=== PATIENT | female | born 1950 | race Caucasian/White ===

== ENCOUNTER 2021-02-13 15:37 | Inpatient (IN) | payer MEDICARE, OTHER ==
[~2021-02-13] VITALS: Ht 162.6 cm; Wt 59.0 kg
--- NOTE | 2021-02-13 15:45 | NUR ---
DR. MANE AT BS FOR EVAL.
--- NOTE | 2021-02-13 15:51 | NUR ---
DENISSE Ambulife unit 716 from [facility] "Dementia/wanders. PT AAOX2, VSS. RR EVEN & UNLABORED. DENIES CP, SOB, DIZZINESS, N/V AT THIS TIME. PT CALM & COOPERATIVE AT THIS TIME. SITTER AT BS & WILL CONT TO MONITOR.
--- NOTE | 2021-02-13 16:08 | NUR ---
STARTED IV LINE, BLOOD SPECIMEN COLLECTED AND SENT TO THE LAB. THE LINE IS SALINE LOCKED.
[2021-02-13 16:11] LABS: BILIRUBIN,URINE Negative (NEGATIVE); COLOR,URINE YELLOW (YELLOW); LEUKOCYTE ESTERASE ,URINE Negative (NEGATIVE); NITRITE, URINE Negative (NEGATIVE); PROTEIN,URINE Negative (NEGATIVE); UGLUCOSE Negative (NEGATIVE); UROBILINOGEN,URINE 0.2 EU/dL (0.2)
[2021-02-13 16:12] LABS: BASOPHILS # (AUTO) 0.1 K/uL (0.0-0.2); BASOPHILS % (AUTO) 0.9 % (0.0-2.0); EOSINOPHILS % (AUTO) 2.6 % (0.0-6.0); HEMATOCRIT 40 % (33-45); LYMPHOCYTES % (AUTO) 36.1 % (20.0-44.0); MEAN CORPUSCULAR HGB CONC 32 g/dl (31.0-36.0); MEAN CORPUSCULAR VOLUME 89 fL (82-100); MONOCYTES # (AUTO) 0.9 K/uL (0.1-1.30); MONOCYTES % (AUTO) 10.3 % (2.0-12.0); NEUTROPHILS # (AUTO) 4.2 K/uL (1.8-8.9); NEUTROPHILS % (AUTO) 50.1 % (43.0-81.0); PLATELET COUNT (AUTO) 268 K/uL (150-450); WHITE BLOOD COUNT (AUTO) 8.4 K/uL (4.3-11.0)
[2021-02-13] MEDS ORDERED: DORZ10DR13 EACHEYE (16:13)
[2021-02-13] MEDS ORDERED: TRAZ-182 PO (16:13)
[2021-02-13] MEDS ORDERED: MULT-447 PO (16:13)
[2021-02-13] MEDS ORDERED: ATOR40TA PO (16:13)
[2021-02-13] MEDS ORDERED: AMLO5TAB4 PO (16:13)
[2021-02-13] MEDS ORDERED: LAMO25TA10 PO (16:13)
[2021-02-13] MEDS ORDERED: DOCU-141 PO (16:13)
[2021-02-13] MEDS ORDERED: QUET50TA PO (16:13)
[2021-02-13] MEDS ORDERED: LORA2VIA11 IM (16:13)
[2021-02-13] MEDS ORDERED: ASCO500C17 PO (16:13)
--- NOTE | 2021-02-13 16:13 | NUR ---
URINE COLLECTED AND SENT TO THE LAB
--- NOTE | 2021-02-13 16:15 | NUR ---
MOVE SHEET SUBMITTED AND CALLED FOR BED.
[2021-02-13 16:19] LABS: CALCIUM, SERUM 8.8 mg/dL (8.5-10.1); CARBON DIOXIDE 28 mmol/L (21-32); CHLORIDE 105 mmol/L (98-107); CREATININE 1.2 mg/dL (0.6-1.3); GLUCOSE 99 mg/dL (74-106); POTASSIUM 3.2 mmol/L (3.5-5.1); SODIUM SERUM 142 mmol/L (136-145); UREA NITROGEN, BLOOD 16 mg/dL (7-18)
[2021-02-13 16:24] LABS: ACETAMINOPHEN 0 ug/ml (10-30); ALCOHOL, BLOOD < 3 mg/dL (0-0)
--- NOTE | 2021-02-13 16:40 | NUR ---
COVID SWAB DONE & SENT TO LAB.
[2021-02-13 17:27] LABS: THYROID STIMULATING HORMONE 0.865 uIU/mL (0.358-3.74)
[2021-02-13] MEDS ORDERED: POTASSIUM CHLORIDE 20 MEQ TAB.PRT.SR PO ONE ×2 (17:30→17:34)
--- NOTE | 2021-02-13 17:42 | NUR ---
CLAIRE CALLED, ON HER WAY.
[2021-02-13] MEDS ORDERED: LORAZEPAM INJ 2 MG/ML VIAL ONE (17:54)
[2021-02-13] MEDS ORDERED: LORAZEPAM INJ 2 MG/ML VIAL IV ONE (18:00)
--- NOTE | 2021-02-13 19:14 | NUR ---
REPORT GIVEN TO NURSE PLUNKETT FOR ROGELIO
--- NOTE | 2021-02-13 19:38 | NUR ---
[facility] CALLED CONTINUOUS MINING MACHINE LODE MINER PAGED.
--- NOTE | 2021-02-13 20:05 | NUR ---
REPORT GIVEN TO THUY DENIS FOR ROGELIO
--- NOTE | 2021-02-13 20:21 | NUR ---
PATIENT TRANSFERRED, VSS, PT IN NO ACUTE DISTRESS
[2021-02-13] MEDS ORDERED: MAG HYDROX/AL HYDROX/SIMETH 30 ML UDC PO PRN (21:00)
[2021-02-13] MEDS ORDERED: MAGNESIUM HYDROXIDE 30 ML UDC PO PRN (21:00)
[2021-02-13 21:09] VITALS: BP 146/96
[2021-02-13] MEDS ORDERED: BLOOD SUGAR DIAGNOSTIC 1 EACH STRIP IN ONE (21:30)
[2021-02-13] MEDS: QUETIAPINE FUMARATE 25 MG TABLET PO PRN (21:42)
--- NOTE | 2021-02-13 21:43 | NUR ---
ANXIETY PT. NOTED VERY ANXIOUS , PARANOID YELLING, RESTLESS, PACING IN HALLWAY,WANDRING IN THE UNIT, NON DIRECTABLE PRN SEROQUEL 12.5 MG PO GIVEN FOR ANXIETY ,WILL CONTINUE TO MONITOR.
[2021-02-13] MEDS: TIMOLOL 0.5% SOLN OPHTH 5 ML BOTTLE EACHEYE SCH (21:49)
[2021-02-13] MEDS: ATORVASTATIN 40 MG TABLET PO SCH (21:49)
[2021-02-13 23:37] VITALS: BP 130/78
--- NOTE | 2021-02-14 01:07 | NUR ---
ADMISSION NOTES: ADMITTED THIS 70Y/O FEMALE PATIENT [facility] , ADMITTED TO GPS ON 5150 HOLD, PER HOLD GD , DTO AND INCREASED AGITATION, PHYSICALLY AGGRESSIVE TOWARDS STAFF , STRIKING OUT ,SCRATCHING AND KICKING STAFF , ATTEMPTED TO ELOPED FROM THE FACILITY AGGRESSIVE BEHAVIOR, UPON FACE TO FACE ASSESSMENT PATIENT IS A&O X 1 , DEPRESSED , ANXIOUS ,EASILY AGITATED , PARNOID DISHELVED , AGITATED, DISORGNIZED, ,POOR HYGINE REFUSED TO TAKE SHOWER AT THIS TIME, PT. IS POOR HISTORIAN, POOR INSIGHT ,POOR JUDGEMENT, PT. DENIES SI HI AT THIS TIME , BOTH MD AWARE AND NOTIFIED OF THE ADMISSION, BELONGINGS CONTRABAND WERE DONE , PT. REFUSED TO SIGNS OF ADMISSION PAPER DUE TO MENTAL CONDITION,PT. RIGHTS DISCUSS BY PRIMARY NURSE , PROVIDE THE PT. WITH HANDBOOK, AND MEDICATIONS GUIDE, ENVIRONMENTAL SAFETY CHECK DONE, ENCOURAGED PT. VERBALIZED ANY FEELING CONCERN TO STAFF, ORIENT TO UNIT POLICY, NO ACUTE DISTRESS NOTED,VITAL SIGNS WNL ,DENIES ANY PAIN AT THIS TIME,WILL CONTINUE TO MONITOR FOR Q15 SAFETY AND BEHAVIOR.
[2021-02-14] MEDS ORDERED: Z GUARD REMEDY 2 OZ OINT TP PRN (07:30)
[2021-02-14 08:00] VITALS: BP 126/78
[2021-02-14] MEDS: MULTIVIT W/MINERALS 1 TAB TABLET PO SCH (09:59)
[2021-02-14] MEDS: DOCUSATE SODIUM 100 MG CAPSULE PO SCH (09:59)
[2021-02-14] MEDS: AMLODIPINE BESYLATE 5 MG TABLET PO SCH (10:00)
[2021-02-14] MEDS: ASCORBIC ACID 500 MG TABLET PO SCH (10:00)
[2021-02-14] MEDS: Z GUARD REMEDY 2 OZ OINT TP SCH (10:02)
[2021-02-14] MEDS: QUETIAPINE FUMARATE 25 MG TABLET PO PRN (11:51)
--- NOTE | 2021-02-14 11:56 | NUR ---
CALLED DR. PANIAGUA REGARDING PT'S AGITATION.STATES HE WILL BE HERE IN 30 MINUTES,GIVEN SEROQUEL 12.5MG PO.
[2021-02-14] MEDS ORDERED: QUETIAPINE FUMARATE 25 MG TABLET PO SCH ×2 (14:30)
--- NOTE | 2021-02-14 14:33 | NUR ---
DR. PANIAGUA CALLED REGARDING SEVERE AGITATION,INSTRUCTED TO ATTEMPT 12.5 MG SEROQUEL.MED GIVEN BY RN,WILL MONITOR PT.
--- NOTE | 2021-02-14 15:51 | NUR ---
given zyprexa im per dr. germain's order.pt. extremely agitated and pounding on wall,additionally appears to be hallucinating as well.
--- NOTE | 2021-02-14 15:55 | NUR ---
pacing back and forth on unit.
[2021-02-14] MEDS ORDERED: OLANZAPINE 10 MG VIAL IM ONE (16:00)
--- NOTE | 2021-02-14 16:00 | NUR ---
followed working senior mechanical development engineer out unit door and rn quickly detained pt.back in to unit.
[2021-02-14 20:00] VITALS: BP 124/80
[2021-02-14 20:22] VITALS: BP 124/80
[2021-02-14] MEDS: QUETIAPINE FUMARATE 25 MG TABLET PO SCH (20:46)
[2021-02-14] MEDS: DIVALPROEX SODIUM 125 MG TABLET.DR PO SCH (20:46)
[2021-02-14] MEDS: TIMOLOL 0.5% SOLN OPHTH 5 ML BOTTLE EACHEYE SCH (21:03)
[2021-02-14] MEDS: ATORVASTATIN 40 MG TABLET PO SCH (21:19)
[2021-02-14] MEDS: ACETAMINOPHEN 325 MG TABLET PO PRN (22:46)
--- NOTE | 2021-02-14 22:47 | NUR ---
RN NOTE: PAIN PATIENT C/O LOWER BACK PAIN, UNABLE TO SCALE DUE TO CONFUSION. PATIENT REQUESTED FOR TYLENOL. PRN TYLENOL 650 MG PO ADMINISTERED. WILL CONTINUE TO MONITOR.
[2021-02-14] MEDS: ZOLPIDEM TARTRATE 5 MG TABLET PO PRN (23:03)
--- NOTE | 2021-02-14 23:04 | NUR ---
RN NOTE: INSOMNIA PATIENT IS UNABLE TO SLEEP, RESTLESS, EASILY AGITATED, PATIENT STATED," I CAN'T SLEEP, CAN YOU GIVE ME SOMETHING FOR SLEEP." PRN AMBIEN 5 MG 1 TAB PO ADMINISTERED. WILL CONTINUE TO MONITOR.
[2021-02-15 08:00] VITALS: BP 127/67
[2021-02-15] MEDS: QUETIAPINE FUMARATE 25 MG TABLET PO PRN ×2 (08:03→12:15)
[2021-02-15] MEDS: ASCORBIC ACID 500 MG TABLET PO SCH (08:04)
[2021-02-15] MEDS: MULTIVIT W/MINERALS 1 TAB TABLET PO SCH (08:04)
[2021-02-15] MEDS: DIVALPROEX SODIUM 125 MG TABLET.DR PO SCH ×3 (08:04→21:01)
[2021-02-15] MEDS: AMLODIPINE BESYLATE 5 MG TABLET PO SCH (08:04)
[2021-02-15] MEDS: Z GUARD REMEDY 2 OZ OINT TP SCH (08:06)
[2021-02-15] MEDS: DOCUSATE SODIUM 100 MG CAPSULE PO SCH (08:06)
--- NOTE | 2021-02-15 08:30 | NUR ---
RN-CO: SEROQUEL 12.5 GIVEN FOR RESTLESSNESS.
--- NOTE | 2021-02-15 12:21 | NUR ---
RN-CO: SEROQUEL 12.5 MG PO GIVEN FOR AGITATION.
[2021-02-15] MEDS: QUETIAPINE FUMARATE 25 MG TABLET PO SCH ×2 (13:00→21:01)
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
[2021-02-15] MEDS ORDERED: OLANZAPINE 10 MG VIAL IM STA ×2 (13:22→15:43)
--- NOTE | 2021-02-15 15:40 | NUR ---
RN-CO: PREVIOUS ZYPREXA 3 MG IM THAT WAS GIVEN IS INEFFECTIVE, SYMTOMS OF AGGRESSION IS WORSEN,, NO WSHE IS SCREAMING, THREATENING AND AGITATING ANOTHER PATIENTS. DR PANIAGUA ORDERED ZYPREXA 3 MG IM STAT.
[2021-02-15 16:00] VITALS: BP 134/70
[2021-02-15 19:48] VITALS: BP 132/81
--- NOTE | 2021-02-15 19:48 | NUR ---
Patient in room at this time quiet but yelling when staff enters. Will monitor for behaviors overnight and give PRN ordered meds as needed.
[2021-02-15] MEDS: ATORVASTATIN 40 MG TABLET PO SCH (21:01)
[2021-02-15] MEDS: TIMOLOL 0.5% SOLN OPHTH 5 ML BOTTLE EACHEYE SCH (21:01)
[2021-02-15] MEDS: ZOLPIDEM TARTRATE 5 MG TABLET PO PRN (22:18)
[2021-02-16] MEDS: QUETIAPINE FUMARATE 25 MG TABLET PO PRN (04:40)
--- NOTE | 2021-02-16 06:21 | NUR ---
Patient refusing AM labs x3.
[2021-02-16 08:00] VITALS: BP 137/85
[2021-02-16] MEDS: Z GUARD REMEDY 2 OZ OINT TP SCH (08:42)
[2021-02-16] MEDS: ASCORBIC ACID 500 MG TABLET PO SCH (08:46)
[2021-02-16] MEDS: DOCUSATE SODIUM 100 MG CAPSULE PO SCH (08:46)
[2021-02-16] MEDS: MULTIVIT W/MINERALS 1 TAB TABLET PO SCH (08:48)
[2021-02-16] MEDS: DIVALPROEX SODIUM 125 MG TABLET.DR PO SCH ×3 (08:48→20:31)
[2021-02-16] MEDS: QUETIAPINE FUMARATE 25 MG TABLET PO SCH ×3 (08:48→20:42)
[2021-02-16] MEDS: AMLODIPINE BESYLATE 5 MG TABLET PO SCH (08:48)
--- NOTE | 2021-02-16 09:46 | NUR ---
KAYLA Initial Discharge Plan: Pt resides at [facility] [address] [address]; . Pt does not have any support contact at this time. KAYLA will work with the MD and family to help coordinate appropriate discharge plan.
--- NOTE | 2021-02-16 10:28 | NUR ---
K DUR 40 MEQ PO ONCE ORDER PLACED. PER BRINA RABAGO DNP REQUEST. PT'S K 3.2.
[2021-02-16] MEDS ORDERED: POTASSIUM CHLORIDE 20 MEQ TAB.PRT.SR PO ONE (10:30)
--- NOTE | 2021-02-16 10:35 | NUR ---
K DUR ORDER CANCELLED. PER GEM PARKS
--- NOTE | 2021-02-16 10:48 | NUR ---
SNF Contact: SW spoke with Oliver Glass ([phone]) from [facility] and they stated they will consult with and KAYLA to see if pt is acceptable at the facility.
--- NOTE | 2021-02-16 13:48 | NUR ---
KAYLA SNF Referral: KAYLA sent clinicals to [facility] to Leticia kaur ([phone]) for placement option. KAYLA sent H & P notes, progress notes, and medication list.
[2021-02-16 16:00] VITALS: BP 138/80
[2021-02-16 19:59] VITALS: BP 142/73
[2021-02-16 20:14] VITALS: BP 142/73
[2021-02-16 20:43] LABS: BASOPHILS # (AUTO) 0.2 K/uL (0.0-0.2); BASOPHILS % (AUTO) 1.2 % (0.0-2.0); EOSINOPHILS % (AUTO) 1.9 % (0.0-6.0); HEMATOCRIT 40 % (33-45); HEMOGLOBIN 13.2 g/dL (11.5-14.8); LYMPHOCYTES # (AUTO) 3.5 K/uL (0.8-4.8); LYMPHOCYTES % (AUTO) 25.3 % (20.0-44.0); MEAN CORPUSCULAR HGB CONC 33 g/dl (31.0-36.0); MEAN CORPUSCULAR VOLUME 89 fL (82-100); MONOCYTES # (AUTO) 1.3 K/uL (0.1-1.30); MONOCYTES % (AUTO) 9.4 % (2.0-12.0); NEUTROPHILS # (AUTO) 8.5 K/uL (1.8-8.9); NEUTROPHILS % (AUTO) 62.2 % (43.0-81.0); PLATELET COUNT (AUTO) 308 K/uL (150-450); RED BLOOD CELL COUNT(AUTO) 4.52 MIL/uL (4.0-5.2); WHITE BLOOD COUNT (AUTO) 13.6 K/uL (4.3-11.0)
[2021-02-16 20:58] LABS: CALCIUM, SERUM 9.6 mg/dL (8.5-10.1); CREATININE 0.9 mg/dL (0.6-1.3); MAGNESIUM 2.4 mg/dL (1.8-2.4); PHOSPHORUS 4.8 mg/dL (2.5-4.9); POTASSIUM 4.1 mmol/L (3.5-5.1)
[2021-02-16] MEDS: TIMOLOL 0.5% SOLN OPHTH 5 ML BOTTLE EACHEYE SCH (21:05)
[2021-02-16] MEDS: ATORVASTATIN 40 MG TABLET PO SCH (21:05)
--- NOTE | 2021-02-17 05:38 | NUR ---
RN NOTES PATIENT SLEPT WELL AT NIGHT, NOTED TO BE EASILY AGITATED BUT REDIRECTABLE. NO PRN'S NEEDED AT NIGHT.
[2021-02-17 08:00] VITALS: BP 140/89
[2021-02-17] MEDS: Z GUARD REMEDY 2 OZ OINT TP SCH (09:02)
[2021-02-17] MEDS: DOCUSATE SODIUM 100 MG CAPSULE PO SCH (09:05)
[2021-02-17] MEDS: MULTIVIT W/MINERALS 1 TAB TABLET PO SCH (09:05)
[2021-02-17] MEDS: ASCORBIC ACID 500 MG TABLET PO SCH (09:06)
[2021-02-17] MEDS: QUETIAPINE FUMARATE 25 MG TABLET PO SCH ×3 (09:06→20:35)
[2021-02-17] MEDS: AMLODIPINE BESYLATE 5 MG TABLET PO SCH (09:07)
[2021-02-17] MEDS: DIVALPROEX SODIUM 125 MG TABLET.DR PO SCH ×3 (09:28→20:33)
--- NOTE | 2021-02-17 10:29 | NUR ---
SW SNF Contact: KAYLA spoke with Leticia from [facility] who stated that pt is accepted.
[2021-02-17 16:00] VITALS: BP 130/72
[2021-02-17 20:00] VITALS: BP 134/72
[2021-02-17] MEDS: ATORVASTATIN 40 MG TABLET PO SCH (21:28)
[2021-02-17] MEDS: TIMOLOL 0.5% SOLN OPHTH 5 ML BOTTLE EACHEYE SCH (21:29)
[2021-02-17] MEDS: ZOLPIDEM TARTRATE 5 MG TABLET PO PRN (21:53)
[2021-02-18 08:00] VITALS: BP 127/74
[2021-02-18] MEDS: ACETAMINOPHEN 325 MG TABLET PO PRN (08:07)
--- NOTE | 2021-02-18 08:32 | NUR ---
GIVEN TYLENOL 650 MG PO FOR BACK ACHE.
[2021-02-18] MEDS: ASCORBIC ACID 500 MG TABLET PO SCH (08:53)
[2021-02-18] MEDS: MULTIVIT W/MINERALS 1 TAB TABLET PO SCH (08:53)
[2021-02-18] MEDS: QUETIAPINE FUMARATE 25 MG TABLET PO SCH ×3 (08:53→20:58)
[2021-02-18] MEDS: DOCUSATE SODIUM 100 MG CAPSULE PO SCH (08:54)
[2021-02-18] MEDS: DIVALPROEX SODIUM 125 MG TABLET.DR PO SCH ×3 (08:54→20:58)
[2021-02-18] MEDS: AMLODIPINE BESYLATE 5 MG TABLET PO SCH (08:54)
[2021-02-18] MEDS: Z GUARD REMEDY 2 OZ OINT TP SCH (09:00)
[2021-02-18] MEDS: QUETIAPINE FUMARATE 25 MG TABLET PO PRN (13:39)
--- NOTE | 2021-02-18 13:39 | NUR ---
GIVEN PRN SEROQUEL 12.5 MG FOR RESTLESSNESS.ATTEMPTING TO LEAVE UNIT.
[2021-02-18 16:00] VITALS: BP 125/78
[2021-02-18 20:00] VITALS: BP 114/64
[2021-02-18] MEDS: TIMOLOL 0.5% SOLN OPHTH 5 ML BOTTLE EACHEYE SCH (20:58)
[2021-02-18] MEDS: ATORVASTATIN 40 MG TABLET PO SCH (20:58)
[2021-02-19] MEDS: QUETIAPINE FUMARATE 25 MG TABLET PO PRN ×2 (04:14→16:59)
[2021-02-19 08:00] VITALS: BP 122/70
[2021-02-19] MEDS: ASCORBIC ACID 500 MG TABLET PO SCH (08:18)
[2021-02-19] MEDS: QUETIAPINE FUMARATE 25 MG TABLET PO SCH ×3 (08:18→20:50)
[2021-02-19] MEDS: MULTIVIT W/MINERALS 1 TAB TABLET PO SCH (08:18)
[2021-02-19] MEDS: DIVALPROEX SODIUM 125 MG TABLET.DR PO SCH ×3 (08:18→20:50)
[2021-02-19] MEDS: AMLODIPINE BESYLATE 5 MG TABLET PO SCH (08:19)
[2021-02-19] MEDS: DOCUSATE SODIUM 100 MG CAPSULE PO SCH (08:19)
[2021-02-19] MEDS: Z GUARD REMEDY 2 OZ OINT TP SCH (08:22)
--- NOTE | 2021-02-19 12:00 | NUR ---
RN NOTE PT AGITATED AND HIDING PHONE. PT THREW PHONE IN HALLWAY WHEN ATTEMPTING TO GET IT BACK FROM HER. MADE DR. PANIAGUA AWARE WITH NEW ORDERS QUIETAPINE 25MG. ORDERS READ BACK AND CARRIED OUT.
[2021-02-19 16:00] VITALS: BP 110/53
[2021-02-19] MEDS: ACETAMINOPHEN 325 MG TABLET PO PRN (16:59)
[2021-02-19 20:00] VITALS: BP 111/64
[2021-02-19] MEDS: ATORVASTATIN 40 MG TABLET PO SCH (20:50)
[2021-02-19] MEDS: TIMOLOL 0.5% SOLN OPHTH 5 ML BOTTLE EACHEYE SCH (20:51)
[2021-02-19] MEDS: ZOLPIDEM TARTRATE 5 MG TABLET PO PRN (20:51)
[2021-02-20 07:36] LABS: ALANINE AMINOTRANSFERASE 44 U/L (12-78); ASPARTATE AMINOTRANSFERASE 21 U/L (15-37)
[2021-02-20 08:00] VITALS: BP 142/90
[2021-02-20] MEDS: DOCUSATE SODIUM 100 MG CAPSULE PO SCH (08:09)
[2021-02-20] MEDS: DIVALPROEX SODIUM 125 MG TABLET.DR PO SCH ×3 (08:09→21:08)
[2021-02-20] MEDS: ASCORBIC ACID 500 MG TABLET PO SCH (08:09)
[2021-02-20] MEDS: QUETIAPINE FUMARATE 25 MG TABLET PO SCH ×3 (08:09→21:08)
[2021-02-20] MEDS: MULTIVIT W/MINERALS 1 TAB TABLET PO SCH (08:09)
[2021-02-20] MEDS: Z GUARD REMEDY 2 OZ OINT TP SCH (08:10)
[2021-02-20] MEDS: AMLODIPINE BESYLATE 5 MG TABLET PO SCH (08:10)
--- NOTE | 2021-02-20 12:19 | NUR ---
RN NOTES PATIENT SEEN PACING BACK AND FORTH IN THE HALLWAY LOOKING FOR WILLAM. EXPLAINED TO PATIENT THAT STAFF IS CURRENTLY ON BREAK BUT STILL CONTINUES TO LOOK FOR HIM. INSISTS ON GOING OUT OF THE UNIT; NEEDS REDIRECTION AND REORIENTATION. EXPLAINED PLAN OF CARE TO PATIENT BUT DOES NOT LISTEN.
[2021-02-20 12:29] LABS: VALPROIC ACID 73 ug/mL (50-100)
--- NOTE | 2021-02-20 13:50 | NUR ---
Court Hearing: Patient's court hearing for 2670 was today and it was upheld for GD.
[2021-02-20 16:00] VITALS: BP 138/92
[2021-02-20] MEDS: ACETAMINOPHEN 325 MG TABLET PO PRN (19:21)
--- NOTE | 2021-02-20 19:21 | NUR ---
GPS-RN NOTES: LOWER BACK PAIN PATIENT C/O LOWER BACK PAIN ON A PAIN SCALE OF 3/0. PRN ACETAMINOPHEN 650MG PO GIVEN ORDERED. WILL CONTINUE TO REASSESS.
[2021-02-20 20:32] VITALS: BP 150/70
[2021-02-20] MEDS: TIMOLOL 0.5% SOLN OPHTH 5 ML BOTTLE EACHEYE SCH (21:07)
[2021-02-20] MEDS: ATORVASTATIN 40 MG TABLET PO SCH (21:08)
[2021-02-20] MEDS: ZOLPIDEM TARTRATE 5 MG TABLET PO PRN (22:06)
--- NOTE | 2021-02-20 22:07 | NUR ---
GPS-RN NOTES: INSOMNIA PATIENT C/O INABILITY TO SLEEP. PRN AMBIEN 5MG PO GIVEN ORDERED. WILL CONTINUE TO MONITOR.
[2021-02-21] MEDS: ACETAMINOPHEN 325 MG TABLET PO PRN (04:06)
[2021-02-21 08:00] VITALS: BP 125/76
[2021-02-21] MEDS: DOCUSATE SODIUM 100 MG CAPSULE PO SCH (08:55)
[2021-02-21] MEDS: DIVALPROEX SODIUM 125 MG TABLET.DR PO SCH ×3 (08:57→21:47)
[2021-02-21] MEDS: AMLODIPINE BESYLATE 5 MG TABLET PO SCH (08:57)
[2021-02-21] MEDS: Z GUARD REMEDY 2 OZ OINT TP SCH (08:58)
[2021-02-21] MEDS: QUETIAPINE FUMARATE 25 MG TABLET PO SCH ×3 (08:58→21:47)
[2021-02-21] MEDS: MULTIVIT W/MINERALS 1 TAB TABLET PO SCH (08:58)
[2021-02-21] MEDS: ASCORBIC ACID 500 MG TABLET PO SCH (08:58)
--- NOTE | 2021-02-21 09:00 | NUR ---
RN NOTE- CONFUSED REFUSING MEDS, PARANOID, ATTEMPTING DOORS AND AWOL RISK, REDIRECTED REORIENTED TO PLACE, OPPOSITIONAL
[2021-02-21] MEDS ORDERED: OLANZAPINE 10 MG VIAL IM STA (12:24)
--- NOTE | 2021-02-21 12:25 | NUR ---
RN NOTE- PT REFUSING ALL MEDS TODAY, LABILE, PACING AND TRYING DOORS. REDIRECTED NUMEROUS TIMES. PT WAS BEING OPPOSITIONAL BUT COULD REDIRECT. NOW BECOMING MORE AGGRESSIVE, PROFANE AND ANGRY. DR PANIAGUA ORDERED ZYPREXA 3 MG IM STAT
[2021-02-21 16:00] VITALS: BP 119/76
--- NOTE | 2021-02-21 20:00 | NUR ---
GPS RN NOTES RECEIVED OUT OF HER ROOM,CONVERSING WITH OTHER PATIENT SITTING ON CHAIR BY THE BACK STATION,CALM AND COOPERATIVE AT THE MOMENT,NEEDS FREQUENT REDIRECTION.WILL CONTINUE TO MONITOR BEHAVIOR.
[2021-02-21 20:23] VITALS: BP 139/91
[2021-02-21] MEDS: ATORVASTATIN 40 MG TABLET PO SCH (21:48)
[2021-02-21] MEDS: TIMOLOL 0.5% SOLN OPHTH 5 ML BOTTLE EACHEYE SCH (21:49)
--- NOTE | 2021-02-22 01:52 | NUR ---
GPS RN NOTES SOUND ASLEEP,WITH SEROQUEL 75MG ORDERED
[2021-02-22 08:00] VITALS: BP 115/72
[2021-02-22] MEDS: ACETAMINOPHEN 325 MG TABLET PO PRN ×3 (08:02→21:39)
[2021-02-22] MEDS: DOCUSATE SODIUM 100 MG CAPSULE PO SCH (08:02)
[2021-02-22] MEDS: AMLODIPINE BESYLATE 5 MG TABLET PO SCH (08:04)
[2021-02-22] MEDS: DIVALPROEX SODIUM 125 MG TABLET.DR PO SCH ×3 (08:04→21:32)
[2021-02-22] MEDS: QUETIAPINE FUMARATE 25 MG TABLET PO SCH ×3 (08:05→21:31)
[2021-02-22] MEDS: ASCORBIC ACID 500 MG TABLET PO SCH (08:05)
[2021-02-22] MEDS: MULTIVIT W/MINERALS 1 TAB TABLET PO SCH (08:07)
[2021-02-22] MEDS: Z GUARD REMEDY 2 OZ OINT TP SCH (08:08)
[2021-02-22] MEDS: QUETIAPINE FUMARATE 25 MG TABLET PO PRN (09:29)
[2021-02-22 16:00] VITALS: BP 119/60
[2021-02-22 20:09] VITALS: BP 115/70
[2021-02-22] MEDS: ZOLPIDEM TARTRATE 5 MG TABLET PO PRN (21:31)
--- NOTE | 2021-02-22 21:31 | NUR ---
GPS RN NOTE - INSOMNIA PT NOTED WITH DIFFICULTY FALLING ASLEEP. ADMINISTERED AMBIEN ORDERED. WILL REASSESS FOR SLEEP IN 1 HOUR.
[2021-02-22] MEDS: ATORVASTATIN 40 MG TABLET PO SCH (21:32)
--- NOTE | 2021-02-22 21:39 | NUR ---
GPS RN NOTE - PAIN PT C/O LOWER BACK PAIN. ADMINISTERED TYLENOL 650MG ORDERED. WILL REASSESS FOR PAIN IN 30 MINUTES
--- NOTE | 2021-02-22 21:48 | NUR ---
GPS RN NOTES PT WANDERING IN THE HALLWAYS. OFFERED PATIENT SNACKS. PT ACCUSES RN OF STEALING AND TAKING HER BELONGINGS. PT OFTEN GOING INTO THE WRONG ROOM. OFFERED PT REDIRECTION AND REORIENTATION FREQUENTLY. WILL CONTINUE TO MONITOR BEHAVIOR.
[2021-02-22] MEDS: TIMOLOL 0.5% SOLN OPHTH 5 ML BOTTLE EACHEYE SCH (22:16)
--- NOTE | 2021-02-23 07:30 | NUR ---
PT RECEIVED RESTING COMFORTABLE IN BED. NO S/S OR C/O PAIN OR DISTRESS NOTED. SIDE RAILS UP X2, CALL LIGHT LEFT WITHIN REACH. WILL CONTINUE PLAN OF CARE.
[2021-02-23 08:00] VITALS: BP 130/69
[2021-02-23] MEDS: DOCUSATE SODIUM 100 MG CAPSULE PO SCH (09:17)
[2021-02-23] MEDS: QUETIAPINE FUMARATE 25 MG TABLET PO SCH ×3 (09:17→21:20)
[2021-02-23] MEDS: DIVALPROEX SODIUM 125 MG TABLET.DR PO SCH ×3 (09:17→20:03)
[2021-02-23] MEDS: ASCORBIC ACID 500 MG TABLET PO SCH (09:17)
[2021-02-23] MEDS: MULTIVIT W/MINERALS 1 TAB TABLET PO SCH (09:17)
[2021-02-23] MEDS: AMLODIPINE BESYLATE 5 MG TABLET PO SCH (09:18)
[2021-02-23] MEDS: Z GUARD REMEDY 2 OZ OINT TP SCH (09:21)
[2021-02-23 16:00] VITALS: BP 118/72
[2021-02-23] MEDS: QUETIAPINE FUMARATE 25 MG TABLET PO PRN (16:55)
--- NOTE | 2021-02-23 18:41 | NUR ---
CHANGE OF SHIFT REPORT PT RESTING COMFORTABLY IN GERICHAIR. NO S/S OR C/O PAIN OR DISTRESS NOTED. PT KEPT CLEAN, DRY, AND COMFORTABLE. NO SIGNIFICANT CHANGES SINCE PREVIOUS SHIFT. WILL GIVE REPORT TO FAITH DALEY.
[2021-02-23 20:00] VITALS: BP 120/76
[2021-02-23] MEDS: ZOLPIDEM TARTRATE 5 MG TABLET PO PRN (20:04)
[2021-02-23] MEDS: ACETAMINOPHEN 325 MG TABLET PO PRN (20:04)
--- NOTE | 2021-02-23 20:04 | NUR ---
GPS RN NOTES PATIENT C/O OF NO SLEEP. PATIENT WAS GIVEN 5MG OF AMBIEN PRN PO. WILL CONTINUE TO MONITOR THE PATIENT.
--- NOTE | 2021-02-23 20:04 | NUR ---
GPS RN NOTE PATIENT C/O OF SCIATICA PAIN AT THIS TIME. PATIENT WAS GIVEN 650MG TYLENOL PO. WILL CONTINUE TO MONITOR THE PATIENT.
[2021-02-23 20:38] VITALS: BP 120/76
[2021-02-23] MEDS: ATORVASTATIN 40 MG TABLET PO SCH (21:15)
[2021-02-23] MEDS: TIMOLOL 0.5% SOLN OPHTH 5 ML BOTTLE EACHEYE SCH (21:18)
[2021-02-23] MEDS: TRAZODONE 50 MG TABLET PO SCH (22:37)
[2021-02-24 08:00] VITALS: BP 114/77
[2021-02-24] MEDS: MULTIVIT W/MINERALS 1 TAB TABLET PO SCH (08:34)
[2021-02-24] MEDS: ASCORBIC ACID 500 MG TABLET PO SCH (08:34)
[2021-02-24] MEDS: DOCUSATE SODIUM 100 MG CAPSULE PO SCH (08:34)
[2021-02-24] MEDS: QUETIAPINE FUMARATE 25 MG TABLET PO SCH ×3 (08:35→20:09)
[2021-02-24] MEDS: AMLODIPINE BESYLATE 5 MG TABLET PO SCH (08:35)
[2021-02-24] MEDS: DIVALPROEX SODIUM 125 MG TABLET.DR PO SCH ×3 (08:36→20:09)
[2021-02-24] MEDS: Z GUARD REMEDY 2 OZ OINT TP SCH (09:00)
[2021-02-24] MEDS: ACETAMINOPHEN 325 MG TABLET PO PRN ×3 (10:54→20:20)
--- NOTE | 2021-02-24 11:00 | NUR ---
PATIENT C/O OF BACK PAIN 08/16 MEDICATED WITH 650MG TYLENOL PO. WILL CONTINUE TO MONITOR .
--- NOTE | 2021-02-24 11:30 | NUR ---
NO C/O PAIN AT THIS TIME.
[2021-02-24 16:21] VITALS: BP 121/72
[2021-02-24] MEDS: QUETIAPINE FUMARATE 25 MG TABLET PO PRN (16:54)
--- NOTE | 2021-02-24 16:59 | NUR ---
PATIENT C/O OF ANXIETY MEDICATED WITH SEROQUEL 12.5MG PO.WILL CONTINUE TO MONITOR THE PATIENT.
--- NOTE | 2021-02-24 17:05 | NUR ---
PATIENT C/O OF BACK PAIN MEDICATED WITH 650MG TYLENOL PO. WILL CONTINUE TO MONITOR .
[2021-02-24] MEDS: TRAZODONE 50 MG TABLET PO SCH (21:13)
[2021-02-24] MEDS: ATORVASTATIN 40 MG TABLET PO SCH (21:14)
[2021-02-24] MEDS: TIMOLOL 0.5% SOLN OPHTH 5 ML BOTTLE EACHEYE SCH (21:18)
[2021-02-25 08:00] VITALS: BP 122/76
[2021-02-25] MEDS: MULTIVIT W/MINERALS 1 TAB TABLET PO SCH (08:54)
[2021-02-25] MEDS: DIVALPROEX SODIUM 125 MG TABLET.DR PO SCH ×3 (08:54→21:05)
[2021-02-25] MEDS: ASCORBIC ACID 500 MG TABLET PO SCH (08:54)
[2021-02-25] MEDS: QUETIAPINE FUMARATE 25 MG TABLET PO SCH ×3 (08:54→21:05)
[2021-02-25] MEDS: DOCUSATE SODIUM 100 MG CAPSULE PO SCH (08:54)
[2021-02-25] MEDS: AMLODIPINE BESYLATE 5 MG TABLET PO SCH (08:55)
[2021-02-25] MEDS: Z GUARD REMEDY 2 OZ OINT TP SCH (09:56)
[2021-02-25 16:00] VITALS: BP 127/57
[2021-02-25 20:00] VITALS: BP 138/85
[2021-02-25] MEDS: TRAZODONE 50 MG TABLET PO SCH (21:05)
[2021-02-25] MEDS: ATORVASTATIN 40 MG TABLET PO SCH (21:05)
[2021-02-25] MEDS: TIMOLOL 0.5% SOLN OPHTH 5 ML BOTTLE EACHEYE SCH (21:06)
[2021-02-26 08:00] VITALS: BP 131/74
[2021-02-26] MEDS: QUETIAPINE FUMARATE 25 MG TABLET PO SCH ×3 (08:40→20:42)
[2021-02-26] MEDS: MULTIVIT W/MINERALS 1 TAB TABLET PO SCH (08:40)
[2021-02-26] MEDS: DIVALPROEX SODIUM 125 MG TABLET.DR PO SCH ×3 (08:40→20:42)
[2021-02-26] MEDS: AMLODIPINE BESYLATE 5 MG TABLET PO SCH (08:40)
[2021-02-26] MEDS: DOCUSATE SODIUM 100 MG CAPSULE PO SCH (08:40)
[2021-02-26] MEDS: ASCORBIC ACID 500 MG TABLET PO SCH (08:40)
[2021-02-26] MEDS: Z GUARD REMEDY 2 OZ OINT TP SCH (09:22)
[2021-02-26 16:00] VITALS: BP 107/59
[2021-02-26 19:58] VITALS: BP 134/83
[2021-02-26] MEDS: TRAZODONE 50 MG TABLET PO SCH (21:05)
[2021-02-26] MEDS: ATORVASTATIN 40 MG TABLET PO SCH (21:14)
[2021-02-26] MEDS: TIMOLOL 0.5% SOLN OPHTH 5 ML BOTTLE EACHEYE SCH (21:24)
[2021-02-26] MEDS: ZOLPIDEM TARTRATE 5 MG TABLET PO PRN (21:36)
--- NOTE | 2021-02-26 21:41 | NUR ---
PS-RN NOTES: INSOMNIA PATIENT C/O INABILITY TO SLEEP. PRN AMBIEN 5MG PO GIVEN ORDERED. WILL CONTINUE TO MONITOR.
[2021-02-26] MEDS: ACETAMINOPHEN 325 MG TABLET PO PRN (21:56)
--- NOTE | 2021-02-26 21:57 | NUR ---
GPS-RN NOTES: LOWER BACK PAIN PATIENT C/O LOWER BACK PAIN. ON A PAIN SCALE OF 3/10. PRN ACETAMINOPHEN 650MG PO GIVEN ORDERED. WILL CONTINUE TO REASSESS.
[2021-02-27 08:00] VITALS: BP 135/83
[2021-02-27] MEDS: QUETIAPINE FUMARATE 25 MG TABLET PO SCH ×3 (09:06→21:45)
[2021-02-27] MEDS: DIVALPROEX SODIUM 125 MG TABLET.DR PO SCH ×3 (09:06→21:45)
[2021-02-27] MEDS: MULTIVIT W/MINERALS 1 TAB TABLET PO SCH (09:06)
[2021-02-27] MEDS: ASCORBIC ACID 500 MG TABLET PO SCH (09:06)
[2021-02-27] MEDS: DOCUSATE SODIUM 100 MG CAPSULE PO SCH (09:06)
[2021-02-27] MEDS: AMLODIPINE BESYLATE 5 MG TABLET PO SCH (09:07)
[2021-02-27] MEDS: Z GUARD REMEDY 2 OZ OINT TP SCH (09:08)
--- NOTE | 2021-02-27 09:21 | NUR ---
TUESDAY EARLY ENTRY: Patient will be discharged to a locked custodial facility to [facility] [address] [place] [address]; ([phone]). Please arrange ambulance transportation. Mortgage Loan Assistant spoke with Daniela, Second Worker at [facility]; ([phone]), who stated patient will be accepted at facility today. Patient is alert and oriented x2, and is not able to plan for self-care at this time, but is willing to accept care provided for her at the facility. Patient denies any suicidal or homicidal ideations. Patient is aware and agreeable with discharge plans. Patient does not have any support at this time. Patient will continue to follow-up with her (Psychiatrist) Dr. Maddox [address] [place] [address]; ([phone] and (Transformer Assembly Supervisor) Dr. Neff [address] [address]; ([phone]). Patient presents with euthymic mood and congruent affect.
--- NOTE | 2021-02-27 09:50 | NUR ---
SW Note: SW met with patient and discussed patient's discharge and notified that she will be discharged to [facility]. Pt appeared to be agreeing to going here. However, pt appears to be forgetful and will approach this SW multiple times asking why she is at the hospital and when she will be discharged.
[2021-02-27 16:00] VITALS: BP 121/62
[2021-02-27] MEDS: QUETIAPINE FUMARATE 25 MG TABLET PO PRN ×2 (16:37→17:05)
[2021-02-27] MEDS ORDERED: ZIPRASIDONE MESYLATE 20 MG/VIAL VIAL IM STA (18:09)
--- NOTE | 2021-02-27 18:30 | NUR ---
RN NOTE:AT 1820 PATIENT AGITATED ,ASSAULTIVE ,NOT FOLLOWING DIRECTIONS ,OFFERED 1:1 INTERACTION WITH PATIENT ,TRIED TO REDIRECT PT BUT PATIENT AGITATED AND ,YELLING AND THROWING OBJECTS TO STAFF , NOTIFIED WITH NEW ORDER GEODON 5MG IM X1 STAT AND GIVEN AT 1830 ,PATIENT REFUSED VITAL SIGN ,MONITORED PATIENT [id number] X4,NO SOB ,PATIENT TOLERATED INJECTION WELL ,WILL CONTINUE TO MONITOR .
--- NOTE | 2021-02-27 18:52 | NUR ---
patient refused CBC,BMP X1 AND TALKED TO Jasamine he will attempt two more times .
--- NOTE | 2021-02-27 18:53 | NUR ---
AWARE PATIENT REFUSED LABS ,WILL CONTINUE TO ENCOURAGE PATIENT TO COMPLY .
[2021-02-27 19:58] VITALS: BP 146/96
--- NOTE | 2021-02-27 20:02 | NUR ---
GPS RN NOTES: PATIENT REFUSED PM LABS
[2021-02-27] MEDS: ATORVASTATIN 40 MG TABLET PO SCH (21:45)
[2021-02-27] MEDS: TRAZODONE 50 MG TABLET PO SCH (21:45)
[2021-02-27] MEDS: TIMOLOL 0.5% SOLN OPHTH 5 ML BOTTLE EACHEYE SCH (21:47)
[2021-02-27] MEDS: ZOLPIDEM TARTRATE 5 MG TABLET PO PRN (22:18)
--- NOTE | 2021-02-27 22:25 | NUR ---
GPS RN NOTES: Ambien 5mg given PO at 2218. Will continue to monitor.
--- NOTE | 2021-02-28 07:01 | NUR ---
GPS RN CLOSING NOTES: PATIENT IS CURRENTLY LAYING IN BED SLEEPING COMFORTABLY. PATIENT SLEPT 8HRS THIS SHIFT. NO S/S OF DISTRESS. RESPIRATION EVEN AND UNLABORED WITH EQUAL RISE AND FALL OF THE CHEST, ON ROOM AIR. ALL PATIENT CARE NEEDS HAVE BEEN MET ANTICIPATED. BED IN LOWEST POSITION AND LOCKED, SIDE RAILS UP X2 FOR SAFETY. WILL CONTINUE TO MONITOR AND AND ENDORSE TO AM SHIFT.
[2021-02-28 08:00] VITALS: BP 142/77
[2021-02-28] MEDS: QUETIAPINE FUMARATE 25 MG TABLET PO SCH ×3 (08:22→21:02)
[2021-02-28] MEDS: ASCORBIC ACID 500 MG TABLET PO SCH (08:22)
[2021-02-28] MEDS: MULTIVIT W/MINERALS 1 TAB TABLET PO SCH (08:22)
[2021-02-28] MEDS: DIVALPROEX SODIUM 125 MG TABLET.DR PO SCH ×3 (08:22→21:02)
[2021-02-28] MEDS: DOCUSATE SODIUM 100 MG CAPSULE PO SCH (08:22)
[2021-02-28] MEDS: AMLODIPINE BESYLATE 5 MG TABLET PO SCH (08:22)
[2021-02-28] MEDS: GABAPENTIN 100 MG CAPSULE PO SCH ×2 (08:23→12:05)
[2021-02-28] MEDS: Z GUARD REMEDY 2 OZ OINT TP SCH (09:25)
[2021-02-28 16:00] VITALS: BP 115/66
[2021-02-28] MEDS: GABAPENTIN 300 MG CAPSULE PO SCH (16:19)
[2021-02-28 20:00] VITALS: BP 103/47
[2021-02-28] MEDS: TRAZODONE 50 MG TABLET PO SCH (21:08)
[2021-02-28] MEDS: ATORVASTATIN 40 MG TABLET PO SCH (21:08)
[2021-02-28] MEDS: TIMOLOL 0.5% SOLN OPHTH 5 ML BOTTLE EACHEYE SCH (21:09)
[2021-03-01] MEDS: ACETAMINOPHEN 325 MG TABLET PO PRN (05:39)
--- NOTE | 2021-03-01 05:39 | NUR ---
RN NOTES: SLEEP WELL IN THE NIGHT, AWAKE AT 0500,MORNING CARE DONE, SHE WALK AROUND, SHE ASKED FOR HER PAIN MEDICATION, GIVEN; NON PHARMACOLOGIC INTERVENTION RENDERED.
--- NOTE | 2021-03-01 06:07 | NUR ---
RN NOTES: COVID SWAB DONE, SPECIMEN SENT TO LAB.
[2021-03-01 08:00] VITALS: BP 103/71
[2021-03-01 08:25] VITALS: BP 103/71
[2021-03-01] MEDS: AMLODIPINE BESYLATE 5 MG TABLET PO SCH (08:25)
[2021-03-01] MEDS: QUETIAPINE FUMARATE 25 MG TABLET PO SCH ×2 (08:28→12:02)
[2021-03-01] MEDS: DIVALPROEX SODIUM 125 MG TABLET.DR PO SCH ×2 (08:28→12:02)
[2021-03-01] MEDS: MULTIVIT W/MINERALS 1 TAB TABLET PO SCH (08:28)
[2021-03-01] MEDS: GABAPENTIN 300 MG CAPSULE PO SCH ×2 (08:28→12:02)
[2021-03-01] MEDS: Z GUARD REMEDY 2 OZ OINT TP SCH (08:28)
[2021-03-01] MEDS: ASCORBIC ACID 500 MG TABLET PO SCH (08:28)
[2021-03-01] MEDS: DOCUSATE SODIUM 100 MG CAPSULE PO SCH (08:28)
[2021-03-01 12:46] LABS: BASOPHILS # (AUTO) 0.1 K/uL (0.0-0.2); BASOPHILS % (AUTO) 0.9 % (0.0-2.0); EOSINOPHILS % (AUTO) 3.1 % (0.0-6.0); HEMATOCRIT 39 % (33-45); HEMOGLOBIN 12.8 g/dL (11.5-14.8); LYMPHOCYTES # (AUTO) 2.3 K/uL (0.8-4.8); LYMPHOCYTES % (AUTO) 38.1 % (20.0-44.0); MEAN CORPUSCULAR HGB CONC 33 g/dl (31.0-36.0); MEAN CORPUSCULAR VOLUME 90 fL (82-100); MONOCYTES # (AUTO) 0.6 K/uL (0.1-1.30); MONOCYTES % (AUTO) 10.2 % (2.0-12.0); NEUTROPHILS # (AUTO) 2.9 K/uL (1.8-8.9); NEUTROPHILS % (AUTO) 47.7 % (43.0-81.0); PLATELET COUNT (AUTO) 236 K/uL (150-450); WHITE BLOOD COUNT (AUTO) 6.1 K/uL (4.3-11.0)
--- NOTE | 2021-03-01 14:30 | NUR ---
GPS/RN PT DISCHARGED TO [facility]. VIA AMBULANCE. REPORT GIVEN TO CHERELLE FELLED SEAM OPERATOR. EXIT CARE AND PRESCRIPTIONS PROVIDED. PROPERTY RETURNED. NO SI OR HI REPORTED AT THE TIME OF DISCHARGE. PT IS AMBULATORY.VSS. SKIN CLEAR REFUSED PICTURES AND TO SIGN DISCHARGE PAPERWORK.
--- NOTE | 2021-03-02 16:19 | NUR ---
Belt Maker: SW received a call from caser shoe parts Librado from [facility] ([phone]) who wanted information of pt's discharge and placement.
== END 2021-03-01 14:30 | DRG 881 ==
LOC: ER 15:39 → GPS 19:29
PROVIDERS: ADMIT Psychiatry & Neurology Psychiatry; ATTEND Family Medicine
DX: F32.9 Major depressive disorder, single episode, unspecified (principal); F02.81 Dementia in other diseases classified elsewhere, unspecified severity, with behavioral disturbance; G93.40 Encephalopathy, unspecified; F29 Unspecified psychosis not due to a substance or known physiological condition; F41.9 Anxiety disorder, unspecified; E87.6 Hypokalemia; G30.9 Alzheimer's disease, unspecified; Z88.5 Allergy status to narcotic agent; Z88.0 Allergy status to penicillin; Z88.2 Allergy status to sulfonamides; Z73.6 Limitation of activities due to disability; I10 Essential (primary) hypertension; E78.5 Hyperlipidemia, unspecified; Z79.899 Other long term (current) drug therapy; Z87.891 Personal history of nicotine dependence; D72.829 Elevated white blood cell count, unspecified; F41.0 Panic disorder [episodic paroxysmal anxiety]
CPT/HCPCS: 36415; 80048-TC; 80164-TC; 82962-TC; 83735-TC; 84100-TC; 84439-TC; 84443-TC; 84450-TC; 84460-TC; 85025-TC; 87081-TC; 97112-TC; 97116-TC; 97530-TC; C9803; G0480; J2060; J3486; J3490

== ENCOUNTER 2021-10-18 23:29 | Emergency (ER) | payer MEDICARE, OTHER ==
[~2021-10-18] VITALS: Ht 165.1 cm; Wt 51.3 kg
[~2021-10-18 23:29] MED LIST: AMLO5TAB4 PO; ASCO500C17 PO; ATOR40TA PO; DOCU-141 PO; DORZ10DR13 EACHEYE; MULT-447 PO; TRAZ-182 PO
--- NOTE | 2021-10-18 23:35 | NUR ---
ISMAEL FROM [facility] FOR C/O ALOC, AND LOW APPETITE. PT A/OX2. TOLERATING R/A WELL WITH NO SOB. CONNECTED PT TO POX AND MONITOR. SKIN INTACT. VSS. SAFETY MEASURES IN PLACE.
--- NOTE | 2021-10-18 23:50 | NUR ---
POC BS ACCUCHECK 107
--- NOTE | 2021-10-18 23:51 | NUR ---
Sonya SIMON #20G S/L; PATENT AND INTACT. BLOOD COLLECTED AND SENT TO LAB Addendum: 10/19/21 at 0210 by SERA LFA #18G S/L; PATENT AND INTACT. BLOOD COLLECTED AND SENT TO LAB
[2021-10-19] MEDS ORDERED: IV NS 0.9% 1,000 ML BAG IV ONE
[2021-10-19 00:12] LABS: BASOPHILS # (AUTO) 0.1 K/uL (0.0-0.2); BASOPHILS % (AUTO) 0.9 % (0.0-2.0); EOSINOPHILS % (AUTO) 3.9 % (0.0-6.0); HEMATOCRIT 38 % (33-45); HEMOGLOBIN 12.5 g/dL (11.5-14.8); LYMPHOCYTES # (AUTO) 3.3 K/uL (0.8-4.8); LYMPHOCYTES % (AUTO) 27.7 % (20.0-44.0); MEAN CORPUSCULAR HGB CONC 33 g/dl (31.0-36.0); MEAN CORPUSCULAR VOLUME 84 fL (82-100); MONOCYTES # (AUTO) 0.9 K/uL (0.1-1.30); MONOCYTES % (AUTO) 7.4 % (2.0-12.0); NEUTROPHILS # (AUTO) 7.3 K/uL (1.8-8.9); NEUTROPHILS % (AUTO) 60.1 % (43.0-81.0); PLATELET COUNT (AUTO) 259 K/uL (150-450); RED BLOOD CELL COUNT(AUTO) 4.58 MIL/uL (4.0-5.2); WHITE BLOOD COUNT (AUTO) 12.1 K/uL (4.3-11.0)
--- NOTE | 2021-10-19 00:23 | NUR ---
F/C 16FR INSERTED. URINE AND COVID ANTIGEN SWAB COLLECTED AND SENT TO LAB
[2021-10-19 00:25] LABS: CALCIUM, SERUM 9.6 mg/dL (8.5-10.1); CARBON DIOXIDE 34 mmol/L (21-32); CHLORIDE 105 mmol/L (98-107); CREATININE 0.8 mg/dL (0.6-1.3); GLUCOSE 120 mg/dL (74-106); POTASSIUM 3.7 mmol/L (3.5-5.1); SODIUM SERUM 144 mmol/L (136-145); UREA NITROGEN, BLOOD 16 mg/dL (7-18)
--- NOTE | 2021-10-19 00:28 | NUR ---
CYTOGENETICS LABORATORY MANAGER AT PT'S BEDSIDE
[2021-10-19 00:31] LABS: ALANINE AMINOTRANSFERASE 48 U/L (12-78); ALBUMIN 3.3 g/dL (3.4-5.0); ALKALINE PHOSPHATASE 99 U/L (46-116); ASPARTATE AMINOTRANSFERASE 22 U/L (15-37); BILIRUBIN,DIRECT 0.1 mg/dL (0.0-0.2); BILIRUBIN,TOTAL 0.3 mg/dL (0.2-1.0); TOTAL PROTEIN, SERUM 6.8 g/dL (6.4-8.2)
[2021-10-19 00:36] LABS: ACETAMINOPHEN < 2 ug/ml (10-30); ALCOHOL, BLOOD < 3 mg/dL (0-0)
[2021-10-19 00:39] LABS: SERUM AMMONIA 6 umol/L (11-32)
--- NOTE | 2021-10-19 00:40 | NUR ---
PT TAKEN TO CT VIA JOHN
[2021-10-19 00:50] LABS: BILIRUBIN,URINE NEGATIVE (NEGATIVE); COLOR,URINE YELLOW (YELLOW); LEUKOCYTE ESTERASE ,URINE NEGATIVE (NEGATIVE); NITRITE, URINE NEGATIVE (NEGATIVE); PROTEIN,URINE NEGATIVE (NEGATIVE); UGLUCOSE NEGATIVE (NEGATIVE); UROBILINOGEN,URINE 0.2 EU/dL (0.2)
--- NOTE | 2021-10-19 00:51 | NUR ---
PT RETURNED TO ER BED [address]
[2021-10-19 01:32] LABS: THYROID STIMULATING HORMONE 2.307 uIU/mL (0.358-3.74)
--- NOTE | 2021-10-19 01:51 | NUR ---
CALLED [facility] FOR IMAGING READ
--- NOTE | 2021-10-19 03:27 | NUR ---
CALLED [facility] & SPOKE TO JERAMIE, STATED PT'S DECISION MAKER IS [facility] INTER[facility]ANARY TEAM AND DR. SHARMILA DAVIS
--- NOTE | 2021-10-19 03:32 | NUR ---
[facility] ETA: 1 HOUR
--- NOTE | 2021-10-19 03:33 | NUR ---
REPORT GIVEN TO JERAMIE FROM [facility] FOR ROGELIO
--- NOTE | 2021-10-19 04:01 | NUR ---
[facility] AT BED SIDE TO APPLICATION OPERATIONS ENGINEER THE PT
--- NOTE | 2021-10-19 04:06 | NUR ---
REPORT GIVEN TO [facility] EMT FOR PT TO BE DC TO [facility]. VSS. Patient discharged to [facility] in stable condition.
[2021-10-19 04:07] VITALS: BP 112/69
== END 2021-10-19 04:10 ==
LOC: ER 23:32
DX: F03.90 Unspecified dementia, unspecified severity, without behavioral disturbance, psychotic disturbance, mood disturbance, and anxiety (principal); R62.7 Adult failure to thrive; I10 Essential (primary) hypertension; F32.A Depression, unspecified; Z68.1 Body mass index [BMI] 19.9 or less, adult; Z86.69 Personal history of other diseases of the nervous system and sense organs; Z86.16 Personal history of COVID-19; Z88.8 Allergy status to other drugs, medicaments and biological substances; Z79.899 Other long term (current) drug therapy
CPT/HCPCS: 36415; 51702; 70450; 71045; 80307; 81003; 82962; 85730; 87086; 93005; 96360; 99285; J7030

== ENCOUNTER 2022-01-15 03:24 | Inpatient (IN) | payer MEDICARE, OTHER ==
[~2022-01-15] VITALS: Ht 162.6 cm; Wt 44.5 kg
--- NOTE | 2022-01-15 03:45 | NUR ---
PATIENT BIBPA FROM SNF C/O ABNORMAL LABS SENT BY Primary Health Care Provider. PATIENT IS A/O X 4, RR EVEN AND UNLABORED, NO SOB NOTED. PATIENT TAKEN TO ER BED 10. PATIEN CONNECTED TO CARDIAC AND POX MONITORS.
--- NOTE | 2022-01-15 03:58 | NUR ---
LOULOU COLLECTED AND SENT TO LAB
--- NOTE | 2022-01-15 03:58 | NUR ---
20G IV ESTABLISHED AT . BLOOD DRAWN AND SENT TO LAB.
[2022-01-15 04:17] LABS: BASOPHILS # (AUTO) 0.1 K/uL (0.0-0.2); BASOPHILS % (AUTO) 1.2 % (0.0-2.0); EOSINOPHILS % (AUTO) 5.5 % (0.0-6.0); HEMATOCRIT 37 % (33-45); HEMOGLOBIN 12.3 g/dL (11.5-14.8); LYMPHOCYTES # (AUTO) 2.3 K/uL (0.8-4.8); LYMPHOCYTES % (AUTO) 21.2 % (20.0-44.0); MEAN CORPUSCULAR HGB CONC 33 g/dl (31.0-36.0); MEAN CORPUSCULAR VOLUME 82 fL (82-100); MONOCYTES % (AUTO) 9.5 % (2.0-12.0); NEUTROPHILS # (AUTO) 6.8 K/uL (1.8-8.9); NEUTROPHILS % (AUTO) 62.6 % (43.0-81.0); PLATELET COUNT (AUTO) 314 K/uL (150-450); WHITE BLOOD COUNT (AUTO) 10.9 K/uL (4.3-11.0)
[2022-01-15 04:29] LABS: CALCIUM, SERUM 10.2 mg/dL (8.5-10.1); CARBON DIOXIDE 28 mmol/L (21-32); CHLORIDE 101 mmol/L (98-107); CREATININE 0.5 mg/dL (0.6-1.3); GLUCOSE 124 mg/dL (74-106); POTASSIUM 3.1 mmol/L (3.5-5.1); SODIUM SERUM 138 mmol/L (136-145); UREA NITROGEN, BLOOD 6 mg/dL (7-18)
[2022-01-15 04:45] LABS: ALANINE AMINOTRANSFERASE 493 U/L (12-78); ALBUMIN 2.9 g/dL (3.4-5.0); ASPARTATE AMINOTRANSFERASE 472 U/L (15-37); BILIRUBIN,DIRECT 10.4 mg/dL (0.0-0.2); LIPASE 1086 U/L (73-393)
[2022-01-15 04:47] LABS: ALKALINE PHOSPHATASE > 1000 U/L (46-116)
--- NOTE | 2022-01-15 04:59 | NUR ---
EPIC PANEL PAGED
--- NOTE | 2022-01-15 05:28 | NUR ---
US AT BEDSIDE
--- NOTE | 2022-01-15 05:28 | NUR ---
ASSOCIATE PROFESSOR OF EDUCATION AT BEDSIDE
[2022-01-15] MEDS ORDERED: POTASSIUM CHLORIDE 20 MEQ TAB.PRT.SR PO ONE ×2 (07:30→08:20)
[2022-01-15] MEDS ORDERED: SENN-18 PO (09:23)
[2022-01-15] MEDS ORDERED: BENZ0.5T43 PO (09:23)
[2022-01-15] MEDS ORDERED: GABA-532 PO (09:23)
[2022-01-15] MEDS ORDERED: LATA2.5D15 EACHEYE (09:23)
[2022-01-15] MEDS ORDERED: PSYL822P6 PO (09:23)
[2022-01-15] MEDS ORDERED: CELE100C PO (09:23)
[2022-01-15] MEDS ORDERED: RISP0.5T5 PO (09:23)
--- NOTE | 2022-01-15 10:10 | NUR ---
GOT BED 306-1
--- NOTE | 2022-01-15 10:22 | NUR ---
PATIENT WHEELED OUT VIA GFRANQ FOR MRI, INFORMED REROLLING MACHINE OPERATOR PATIENT NOT ABLE TO ANSWER MRI QUESTIONNAIRE.
[2022-01-15] MEDS ORDERED: ONDANSETRON HCL/PF 4 MG/2 ML VIAL IVP PRN (10:30)
[2022-01-15] MEDS ORDERED: ZOLPIDEM TARTRATE 5 MG TABLET PO PRN (10:30)
[2022-01-15] MEDS ORDERED: Z GUARD REMEDY 4 OZ OINT TP PRN (10:30)
[2022-01-15] MEDS ORDERED: MAGNESIUM HYDROXIDE 30 ML UDC PO PRN (10:30)
[2022-01-15] MEDS ORDERED: MAG HYDROX/AL HYDROX/SIMETH 30 ML UDC PO PRN (10:30)
[2022-01-15] MEDS ORDERED: IV D5/0.45 NACL 1,000 ML IV PRN (10:30)
--- NOTE | 2022-01-15 10:50 | NUR ---
REPORT GIVEN TO GREGORIA DALEY OF [facility] UN[facility]
[2022-01-15] MEDS ORDERED: GADOTERATE MEGLUMINE 10 MMOL/20 ML VIAL IV ONE (11:19)
[2022-01-15 11:45] VITALS: BP 154/92
[2022-01-15] MEDS: IV D5/ 0.9% NACL 1,000 ML IV PRN (11:50)
--- NOTE | 2022-01-15 12:19 | NUR ---
MS WEIGHT YARDAGE CHECKER NOTES PT ADMITTED TO UNIT VIA [facility] AT 1130 WITH DIAGNOSIS OF ACUTE LIVER FAILURE. A/O X1. VERBALLY RESPONSIVE BUT CONFUSED. ABLE TO MAKE NEEDS KNOWN WITH PERIODS OF FORGETFULNESS NOTED. PT ORIENTED TO STAFF AND ROOM. V/S TAKEN AND RECORDED. PT ON ROOM AIR, TOLERATING WELL, BREATHING EVEN AND UNLABORED, NO ACUTE RESPIRATORY DISTRESS NOTED. SKIN IS INTACT, PHOTO OF REDNESS ON BACK OF NECK TAKEN AND FILED ON HER CHART. IV ACCESS ON LFA #20G INTACT AND PATENT, IVF OF D5 NS @ 75ML/HR STARTED PER MD ORDER. LUNGS CLEAR ON AUSCULTATION. ABDOMEN SOFT, NON-TENDER, NON-0DISTENDED WITH POSITIVE BOWEL SOUNDS PRESENT. ANOTHER IV ACCESS INSERTED TO RFA G#22 FOR HEPARIN DRIP. SAFETY PRECAUTIONS IMPLEMENTED: BED IN LOWEST LOCKED POSITION, SIDE RAILS UP X3, CALL LIGHT AND W/I EASY REACH OF PT. WILL CONTINUE TO MONITOR PT.
[2022-01-15] MEDS: GABAPENTIN 300 MG CAPSULE PO SCH ×2 (13:00→17:00)
[2022-01-15] MEDS ORDERED: HEPARIN SODIUM, PORCINE 5000 UNITS/1 ML VIAL IV ONE ×2 (15:00)
[2022-01-15] MEDS: HEPARIN INFUSION/D5W 500 ML IV PRN (16:12)
--- NOTE | 2022-01-15 16:17 | NUR ---
RN NOTES PT WITH PTT OF 25.4, BOLUS OF HEPARIN 4400U ADMINISTERED THEN STARTED HEPARIN DRIP AT 1000 U/H (20ML/HR) TO LFA IV ACCESS PER PROTOCOL AT 1612. NEXT PTT WILL BE IN 6HOURS AT 2212. WILL ENDORSE
[2022-01-15] MEDS: risperiDONE 0.25 MG TABLET PO SCH (17:00)
[2022-01-15] MEDS: SENNOSIDES 8.6 MG TABLET PO SCH (17:00)
[2022-01-15] MEDS ORDERED: hydrALAZINE HCL IV 20 MG VIAL IV PRN (17:30)
--- NOTE | 2022-01-15 17:55 | NUR ---
RN NOTES PT NOTED WITH HIGH BP 171/107 AT 1600. REPEATED AND STILL DAON253/105. WET PAN OPERATOR JOSIE MADE AWARE AND ORDERED HYDRALAZINE 5MG IV FOR SBP>170 AND WAS GIVEN. WILL CONTINUE TO MONITOR.
--- NOTE | 2022-01-15 18:22 | NUR ---
MS RN CLOSING NOTES PT IN BED AWAKE AND RESTING AT MODERATE HIGH BACKREST POSITION. A/O X1. VERBALLY RESPONSIVE BUT CONFUSED AND FORGETFUL. ON ROOM AIR, TOLERATING WELL, BREATHING EVEN AND UNLABORED, NO ACUTE RESPIRATORY DISTRESS NOTED. HEPARIN DRIP AT 1,000 U/HR ( 20ML/HR ) RUNNING WELL TO IV ACCESS ON RFA G#22. IV ACCESS ON LFA #20G INTACT WITH IVF OF D5 NS @ 75ML/HR INFUSING WELL. ALL NEEDS AND CARE PROVIDED WELL. SAFETY PRECAUTIONS IMPLEMENTED: BED IN LOWEST LOCKED POSITION, SIDE RAILS UP X3, CALL LIGHT AND W/I EASY REACH OF PT. CXR JUST DONE NOW IN PT'S ROOM BY MAHAD. WILL ENDORSE ROGELIO TO LITHARGE SUPERVISOR NURSE.
[2022-01-15] MEDS: LATANOPROST EYE DROP 0.005% 2.5 ML BOTTLE EACHEYE SCH (18:28)
--- NOTE | 2022-01-15 19:30 | NUR ---
MS RN NOTES RECEIVED RESTING COMFORTABLY ON BED,A/O X1,BREATHING NON LABORED,NOTED GENERALIZED SKIN JAUNDICE,ON HEPARIN DRIP IN PROGRESS ON RIGHT ARM SALINE LOCK AT 20ML/HR RATE VIA IV PUMP,IVF INFUSING WELL ON LEFT ARM VIA IV PUMP,SITE PATENT,ABLE TO VERBALIZED NEEDS,NPO STATUS,FALL RISK,BED ON LOWEST POSITION AND LOCKED,BED ALARM TRIGGERED,CALL LIGHT IN REACH,NEEDS ANTICIPATED.
[2022-01-15 20:00] VITALS: BP 165/98
[2022-01-15 20:01] VITALS: BP 165/98
[2022-01-15] MEDS: TRAZODONE 50 MG TABLET PO SCH ×2 (21:55→22:01)
[2022-01-15] MEDS: TIMOLOL MAL/DORZOLAM HCL OPHTH 10 ML BOTTLE EACHEYE SCH (21:56)
[2022-01-15] MEDS ORDERED: ATORVASTATIN 40 MG TABLET PO SCH (22:00)
--- NOTE | 2022-01-15 22:42 | NUR ---
MS RN NOTES DESYREL 50 MG PO NON ADMINISTERED,NPO STATUS.
--- NOTE | 2022-01-15 23:18 | NUR ---
AUTOMATED ACCESS SYSTEMS TECHNICIAN NOTES PTT RESULT DRAWN AT 22;22 WAS 166.5 RELAYED BY TELEPHONE STATION INSTALLER JAANGELY AT 2318,CHARGE NURSE MADE AND SAID TO REDRAW BECAUSE OF BIG JUMP ON THE RESULT FROM 25.4 TO 166.5.
--- NOTE | 2022-01-15 23:40 | NUR ---
MS RN NOTES RAILROAD POLICE AT BEDSIDE TO REDRAW BLOOD FOR PTT.
--- NOTE | 2022-01-16 00:30 | NUR ---
MS RN NOTES APTT RESULT RELAYED BY LAB,170 REPEAT DRAW AT 23;40. CHARGE NURSE AWARE.
--- NOTE | 2022-01-16 00:45 | NUR ---
MS RN NOTES HEPARIN DRIP STOP THIS TIME.
--- NOTE | 2022-01-16 01:09 | NUR ---
MS RN NOTES RESULT RELAYED TO HOSPITALIST SOCIOLOGY FACULTY MEMBER CHUCK MORALES,AWAITING FOR ORDERS
--- NOTE | 2022-01-16 01:40 | NUR ---
MS RN NOTES STILL NO MESSAGE FROM CHUCK,HOSPITALIST SPORTS REPORTER, WAS PAGE THRU EXCHANGE,AWAITING TO CALL BACK.
--- NOTE | 2022-01-16 01:45 | NUR ---
MS RN NOTES STARTED HEPARIN DRIP DECREASED TO 850 UNITS= TO 17ML/HR RATE PER PROTOCOL.NO BLEEDING NOTED.
--- NOTE | 2022-01-16 02:11 | NUR ---
MS RN NOTES RECEIVED MESSAGE FOR HOSPITALIST CHUCK WITH ORDER TO JUST FOLLOW HOSPITAL HEPARIN GTTS PROTOCOL NOTED AND CARRIED OUT.
[2022-01-16] MEDS: IV D5/ 0.9% NACL 1,000 ML IV PRN ×2 (05:38→20:38)
--- NOTE | 2022-01-16 06:47 | NUR ---
MS RN NOTES SLEEP WITH INTERVALS,NO ACTIVE BLEEDING NOTED,IVF INFUSING WELL ON LEFT ARM.IN NO ACUTE DISTRESS.HEPARIN DRIP ADJUSTED TO 850 UNITS=17ML/H PER PROTOCOL.WILL ENDORSE TO SHANON DALEY FOR ROGELIO.
--- NOTE | 2022-01-16 07:00 | NUR ---
DISPLAY CARD WRITER OPENING NOTES PATIENT LAYING ON BED, A/O X 1, TOLERATING WELL ON ROOM AIR WITH NO S/S RESPIRATORY DISTRESS. NO COMPLAINTS OF PAIN OR DISCOMFORT AT THIS TIME. LEFT FOREARM # 20 IV INFUSING HEPARIN @ 20 ML/HR, RIGHT FOREARM # 22 G SL INFUSING D5 NS @ 75 ML/HR. SAFETY MEASURES IN PLACE: BED IN LOWEST LOCKED POSITION, SIDE RAILS UP X 2, CALL LIGHT WITHIN REACH. WILL CONTINUE TO MONITOR. Addendum: 01/16/22 at 1522 by SHANON DAMIAN RN PATIENT ON TELE MONITOR READING NSR 72 AT 0700 Addendum: 01/16/22 at 1525 by SHANON DAMIAN RN PATIENT ON MED-SURG STATUS AND NOT ON STRAIGHT EDGER AT 0700
[2022-01-16 07:23] LABS: BASOPHILS # (AUTO) 0.1 K/uL (0.0-0.2); BASOPHILS % (AUTO) 1.1 % (0.0-2.0); EOSINOPHILS % (AUTO) 3.8 % (0.0-6.0); HEMATOCRIT 34 % (33-45); HEMOGLOBIN 11.2 g/dL (11.5-14.8); LYMPHOCYTES # (AUTO) 1.9 K/uL (0.8-4.8); LYMPHOCYTES % (AUTO) 18.5 % (20.0-44.0); MEAN CORPUSCULAR HGB CONC 33 g/dl (31.0-36.0); MEAN CORPUSCULAR VOLUME 83 fL (82-100); MONOCYTES % (AUTO) 9.2 % (2.0-12.0); NEUTROPHILS # (AUTO) 7.1 K/uL (1.8-8.9); NEUTROPHILS % (AUTO) 67.4 % (43.0-81.0); PLATELET COUNT (AUTO) 258 K/uL (150-450); RED BLOOD CELL COUNT(AUTO) 4.08 MIL/uL (4.0-5.2); WHITE BLOOD COUNT (AUTO) 10.6 K/uL (4.3-11.0)
[2022-01-16 08:00] VITALS: BP 130/83
[2022-01-16 08:27] LABS: ALANINE AMINOTRANSFERASE 383 U/L (12-78); ALBUMIN 2.4 g/dL (3.4-5.0); ASPARTATE AMINOTRANSFERASE 321 U/L (15-37); BILIRUBIN,TOTAL 11.9 mg/dL (0.2-1.0); CALCIUM, SERUM 8.7 mg/dL (8.5-10.1); CARBON DIOXIDE 25 mmol/L (21-32); CHLORIDE 102 mmol/L (98-107); CREATININE 0.5 mg/dL (0.6-1.3); LIPASE 626 U/L (73-393); MAGNESIUM 1.9 mg/dL (1.8-2.4); PHOSPHORUS 2.5 mg/dL (2.5-4.9); SODIUM SERUM 136 mmol/L (136-145); TOTAL PROTEIN, SERUM 6.9 g/dL (6.4-8.2); UREA NITROGEN, BLOOD 6 mg/dL (7-18)
[2022-01-16 08:28] LABS: CHOLESTEROL 132 mg/dL (<200); HDL CHOLESTEROL 20 mg/dL (40-60); LDL 82 mg/dL (0-99); THYROID STIMULATING HORMONE 1.317 uIU/mL (0.358-3.74); TRIGLYCERIDES 61 mg/dL (30-150)
[2022-01-16 09:04] LABS: ALKALINE PHOSPHATASE 1196 U/L (46-116)
[2022-01-16] MEDS: DOCUSATE SODIUM 100 MG CAPSULE PO SCH (09:15)
[2022-01-16] MEDS: GABAPENTIN 300 MG CAPSULE PO SCH ×3 (09:15→16:28)
[2022-01-16] MEDS: risperiDONE 0.25 MG TABLET PO SCH ×2 (09:15→16:28)
[2022-01-16] MEDS: SENNOSIDES 8.6 MG TABLET PO SCH ×2 (09:15→16:28)
[2022-01-16] MEDS: PANTOPRAZOLE 40 MG VIAL IV SCH (09:16)
[2022-01-16] MEDS: AMLODIPINE BESYLATE 5 MG TABLET PO SCH (09:18)
[2022-01-16 10:26] LABS: GLUCOSE 181 mg/dL (74-106)
--- NOTE | 2022-01-16 10:36 | NUR ---
RN NOTE- PTT 170.0. YU GALINDO ORDERED HOLD HEPARIN. REPEAT PTT AT 1600. COMPLIED
[2022-01-16 16:00] VITALS: BP 110/64
[2022-01-16] MEDS: LATANOPROST EYE DROP 0.005% 2.5 ML BOTTLE EACHEYE SCH (17:49)
--- NOTE | 2022-01-16 19:45 | NUR ---
MS RN NOTES RECEIVED ON BED SLEEPING,VERY LETHARGIC,AROUSABLE TO PAIN FUL STIMULI,IVF INFUSING WELL ON LEFT ARM SALINE LOCK VIA IV PUMP,SITE PATENT,ON HEPARIN DRIP AT 15ML/HR RATE/750 UNITS INFUSING ON RIGHT ARM SALINE LOCK VIA IV PUMP.WILL MONITOR FOR BLEEDING,CALL LIGHT IN REACH,NEEDS ANTICIPATED.
[2022-01-16 20:00] VITALS: BP 101/67
--- NOTE | 2022-01-16 20:00 | NUR ---
MS RN NOTES HARD TO AROUSE,LETHARGIC,PATIENT WAS GIVEN NEURONTIN AND RISPERDAL AT 1600 SCHEDULED.VITAL SIGNS STABLE.
[2022-01-16] MEDS: TIMOLOL MAL/DORZOLAM HCL OPHTH 10 ML BOTTLE EACHEYE SCH (22:20)
--- NOTE | 2022-01-17 | NUR ---
MS RN NOTES BLOOD DRAW FOR PTT.
--- NOTE | 2022-01-17 01:40 | NUR ---
MS RN NOTES PTT RESULTED AND IT WAS 170, HEPARIN STOP THIS TIME AND WILL RESUME IN AN HOUR PER HEPARIN PROTOCOL.HOSPITALIST CHUCK PARKS MADE AWARE. CHARGE NURSE AWARE.
--- NOTE | 2022-01-17 02:40 | NUR ---
MS RN NOTES HEPARIN DRIP RESUMED AT DECREASED RATE 3U/HR/150ML, 600 UNITS/12ML/HR CURRENT DRIP.NO BLEED ING NOTED.NEXT PTT AT 0840 THIS MORNING
[2022-01-17] MEDS: HEPARIN INFUSION/D5W 500 ML IV PRN (04:10)
[2022-01-17] MEDS: IV D5/ 0.9% NACL 1,000 ML IV PRN (06:45)
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
--- NOTE | 2022-01-17 07:00 | NUR ---
MS RN OPENING NOTES PATIENT LAYING IN BED, A/O X 1, TOLERATING WELL ON ROOM AIR WITH NO S/S RESPIRATORY DISTRESS. LFA # 20 G IV INFUSING NS @ 75 ML/HR, R WRIST # 22 G IV INFUSING HEPARIN @ 600 U/HR (12 ML/HR). SAFETY MEASURES IN PLACE: BED IN LOWEST LOCKED POSITION, SIDE RAILS UP X 2, CALL LIGHT WITHIN REACH. WILL CONTINUE TO MONITOR.
[2022-01-17 07:28] LABS: BASOPHILS # (AUTO) 0.1 K/uL (0.0-0.2); HEMATOCRIT 33 % (33-45); HEMOGLOBIN 10.7 g/dL (11.5-14.8); LYMPHOCYTES # (AUTO) 2.5 K/uL (0.8-4.8); LYMPHOCYTES % (AUTO) 24.6 % (20.0-44.0); MEAN CORPUSCULAR HGB CONC 33 g/dl (31.0-36.0); MEAN CORPUSCULAR VOLUME 83 fL (82-100); MONOCYTES % (AUTO) 9.9 % (2.0-12.0); NEUTROPHILS # (AUTO) 5.6 K/uL (1.8-8.9); NEUTROPHILS % (AUTO) 56.5 % (43.0-81.0); PLATELET COUNT (AUTO) 266 K/uL (150-450)
[2022-01-17 07:29] LABS: ALBUMIN 2.2 g/dL (3.4-5.0); BILIRUBIN,TOTAL 11.7 mg/dL (0.2-1.0); CALCIUM, SERUM 9.1 mg/dL (8.5-10.1); CREATININE 0.7 mg/dL (0.6-1.3); POTASSIUM 2.9 mmol/L (3.5-5.1); TOTAL PROTEIN, SERUM 6.5 g/dL (6.4-8.2)
[2022-01-17] MEDS: SENNOSIDES 8.6 MG TABLET PO SCH ×2 (08:28→16:22)
[2022-01-17] MEDS: GABAPENTIN 300 MG CAPSULE PO SCH ×3 (08:28→16:22)
[2022-01-17] MEDS: risperiDONE 0.25 MG TABLET PO SCH ×2 (08:29→16:22)
[2022-01-17] MEDS: DOCUSATE SODIUM 100 MG CAPSULE PO SCH (08:29)
[2022-01-17] MEDS: AMLODIPINE BESYLATE 5 MG TABLET PO SCH (08:29)
[2022-01-17] MEDS: PANTOPRAZOLE 40 MG VIAL IV SCH (08:30)
[2022-01-17] MEDS ORDERED: POTASSIUM CL. PREMIX PERIPHER. 50 ML IV SCH (09:30)
[2022-01-17] MEDS ORDERED: POTASSIUM CHLORIDE 20 MEQ TAB.PRT.SR PO ONE (10:00)
--- NOTE | 2022-01-17 10:00 | NUR ---
MS RN NOTES HEPARIN DRIP DISCONTINUED PER MD ORDER
[2022-01-17 10:06] LABS: AFP, TUMOR MARKER 3.2 ng/mL (0.0-9.2)
[2022-01-17 14:01] LABS: IRON, SERUM 91 ug/dl (50-175); TOTAL IRON BINDING CAPACITY 210 ug/dl (250-450)
[2022-01-17 15:04] LABS: FERRITIN 5642 ng/mL (8-388)
[2022-01-17] MEDS: ENSURE CLEAR 237 ML LIQUID (MIX BERRY) PO SCH (16:21)
[2022-01-17] MEDS: LATANOPROST EYE DROP 0.005% 2.5 ML BOTTLE EACHEYE SCH (18:41)
[2022-01-17 20:00] VITALS: BP 142/79
--- NOTE | 2022-01-17 20:37 | NUR ---
MS RN OPENING NOTES PATIENT IN BED AA/O X 1 CONFUSED,TOLERATING WELL ON ROOM AIR WITH NO S/S SOB/RESPIRATORY DISTRESS. LFA # 20 G IV INFUSING NS @ 75 ML/HR,INTACT AND PATENT.SAFETY MEASURES IN PLACE: BED IN LOWEST LOCKED POSITION, SIDE RAILS UP X 2, CALL LIGHT WITHIN REACH. WILL CONTINUE TO MONITOR.
[2022-01-17] MEDS: ENOXAPARIN SODIUM 40 MG/0.4 ML DISP.SYRIN SQ SCH (21:28)
[2022-01-17] MEDS: TRAZODONE 50 MG TABLET PO SCH (21:29)
[2022-01-17] MEDS: TIMOLOL MAL/DORZOLAM HCL OPHTH 10 ML BOTTLE EACHEYE SCH (21:38)
[2022-01-18 06:04] LABS: BASOPHILS # (AUTO) 0.1 K/uL (0.0-0.2); BASOPHILS % (AUTO) 1.2 % (0.0-2.0); EOSINOPHILS % (AUTO) 10.3 % (0.0-6.0); HEMATOCRIT 36 % (33-45); HEMOGLOBIN 11.9 g/dL (11.5-14.8); LYMPHOCYTES # (AUTO) 2.2 K/uL (0.8-4.8); LYMPHOCYTES % (AUTO) 23.9 % (20.0-44.0); MEAN CORPUSCULAR HGB CONC 33 g/dl (31.0-36.0); MEAN CORPUSCULAR VOLUME 84 fL (82-100); MONOCYTES # (AUTO) 0.9 K/uL (0.1-1.30); MONOCYTES % (AUTO) 9.9 % (2.0-12.0); NEUTROPHILS # (AUTO) 5.1 K/uL (1.8-8.9); NEUTROPHILS % (AUTO) 54.7 % (43.0-81.0); PLATELET COUNT (AUTO) 257 K/uL (150-450); RED BLOOD CELL COUNT(AUTO) 4.31 MIL/uL (4.0-5.2); WHITE BLOOD COUNT (AUTO) 9.3 K/uL (4.3-11.0)
--- NOTE | 2022-01-18 06:30 | NUR ---
MS RN CLOSING NOTES; PATIENT IN BED SLEEPING A/O X 1 CONFUSED,TOLERATING WELL ON ROOM AIR WITH NO SIGN SOB/RESPIRATORY DISTRESS.NO COMPLAINE OF PAIN/DISCOMFORT DURING SHIFT,DUE MEDS GIVEN ORDER.ALL NEEDS ATTENDED, LFA # 20 G IV INFUSING NS @ 75 ML/HR,INTACT AND PATENT.SAFETY MEASURES IN PLACE: BED IN LOWEST LOCKED POSITION, SIDE RAILS UP X 2, CALL LIGHT WITHIN REACH. WILL ENDORSED TO NEXT SHIFT.
--- NOTE | 2022-01-18 07:12 | NUR ---
MS RN OPENING NOTES PATIENT IN BED A/O X 1-2, OBEYS COMMANDS. PATIENT IS ON ROOM AIR, WITH EQUAL AND UNLABORED BREATHING, TOLERATING WELL, WITH NO RESPIRATORY DISTRESS. WITH RFA G 22 ON SALINE LOCK AND LFA G 20 WITH D5NS RUNNING AT 75 ML/HR. MAINTAINED ON MODERATE TO HIGH BACK REST. SAFETY MEASURES IN PLACE WITH BED IN LOWEST LOCKED POSITION, SIDE RAILS UP X 2, CALL LIGHT WITHIN REACH. WILL CONTINUE TO MONITOR.
[2022-01-18 07:31] LABS: ALBUMIN 2.4 g/dL (3.4-5.0); BILIRUBIN,DIRECT 11.2 mg/dL (0.0-0.2); BILIRUBIN,TOTAL 14.2 mg/dL (0.2-1.0); TOTAL PROTEIN, SERUM 7.3 g/dL (6.4-8.2)
[2022-01-18 08:06] LABS: IMMUNOGLOBULIN A, SERUM 396 mg/dL (64-422); IMMUNOGLOBULIN G, SERUM 1362 mg/dL (586-1602); IMMUNOGLOBULIN M, SERUM 120 mg/dL (26-217)
[2022-01-18 08:18] LABS: CALCIUM, SERUM 9.7 mg/dL (8.5-10.1); CARBON DIOXIDE 22 mmol/L (21-32); CHLORIDE 105 mmol/L (98-107); CREATININE 0.5 mg/dL (0.6-1.3); GLUCOSE 121 mg/dL (74-106); POTASSIUM 3.6 mmol/L (3.5-5.1); SODIUM SERUM 138 mmol/L (136-145); UREA NITROGEN, BLOOD 3 mg/dL (7-18)
[2022-01-18 09:59] VITALS: BP 147/82
[2022-01-18] MEDS: AMLODIPINE BESYLATE 5 MG TABLET PO SCH (10:04)
[2022-01-18] MEDS: GABAPENTIN 300 MG CAPSULE PO SCH ×3 (10:04→17:09)
[2022-01-18] MEDS: SENNOSIDES 8.6 MG TABLET PO SCH ×2 (10:05→17:09)
[2022-01-18] MEDS: PANTOPRAZOLE 40 MG TABLET.DR PO SCH (10:05)
[2022-01-18] MEDS: DOCUSATE SODIUM 100 MG CAPSULE PO SCH (10:05)
[2022-01-18] MEDS: risperiDONE 0.25 MG TABLET PO SCH ×2 (10:05→17:09)
[2022-01-18] MEDS: ENOXAPARIN SODIUM 40 MG/0.4 ML DISP.SYRIN SQ SCH ×2 (10:06→21:28)
[2022-01-18] MEDS: ENSURE CLEAR 237 ML LIQUID (MIX BERRY) PO SCH ×3 (10:13→17:09)
[2022-01-18 13:06] LABS: *SPE A/G RATIO 0.7 (0.7-1.7); *SPE ALPHA-1-GLOBULIN 0.3 g/dL (0.0-0.4); *SPE ALPHA-2-GLOBULIN 0.8 g/dL (0.4-1.0); *SPE M-SPIKE Not Observed g/dL (Not Observed)
[2022-01-18] MEDS: IV D5/ 0.9% NACL 1,000 ML IV PRN (13:48)
--- NOTE | 2022-01-18 15:14 | NUR ---
MS RN NOTE SPOKE WITH ANESTHESIOLOGIST DR. ONTIVEROS. MD NOTIFIED OF PATIENT'S CASE AND ABOUT DR. ROSENBERG AND YU GOMEZ SIGNING FOR THE CONSENT. MD IS WEIGHING ON MEDICAL NECESSITY OF THE PROCEDURE. HE SAID HE WILL DISCUSS IT WITH DR. SHELL. ENDORSED ACCORDINGLY.
[2022-01-18 17:50] VITALS: BP 150/82
[2022-01-18] MEDS: LATANOPROST EYE DROP 0.005% 2.5 ML BOTTLE EACHEYE SCH (18:00)
--- NOTE | 2022-01-18 19:00 | NUR ---
MS RN CLOSING NOTES PATIENT IN BED A/O X 1-2, OBEYS COMMANDS. PATIENT IS ON ROOM AIR, WITH EQUAL AND UNLABORED BREATHING, TOLERATING WELL, WITH NO RESPIRATORY DISTRESS. WITH RFA G 22 ON SALINE LOCK AND LFA G 20 WITH D5NS RUNNING AT 75 ML/HR. MAINTAINED ON MODERATE TO HIGH BACK REST. PATIENT FOR ERCP TOMORROW. STILL TO SECURE CONSENT THROUGH [facility]. SAFETY MEASURES IN PLACE WITH BED IN LOWEST LOCKED POSITION, SIDE RAILS UP X 2, CALL LIGHT WITHIN REACH. ENDORSED PATIENT FOR CONTINUITY OF CARE.
--- NOTE | 2022-01-18 19:34 | NUR ---
MS RN OPENING NOTES PATIENT IN BED AA/O X2 CONFUSED,TOLERATING WELL ON ROOM AIR WITH NO S/S SOB/RESPIRATORY DISTRESS.RFA 22G-SL,LFA # 20 G IV INFUSING NS @ 75 ML/HR,INTACT AND PATENT.SAFETY MEASURES IN PLACE: BED IN LOWEST LOCKED POSITION, SIDE RAILS UP X 2, CALL LIGHT WITHIN REACH. WILL CONTINUE TO MONITOR.
--- NOTE | 2022-01-18 19:34 | NUR ---
SENIOR INSIGHT MANAGER INTERNATIONAL PER DR. ONTIVEROS, PLEASE WRITE IN YOUR NOTES THAT ALL MEANS DONE TO REACH OUT FOR THE FAMILY AND THAT IT WAS UNSUCCESSFUL
[2022-01-18 20:00] VITALS: BP 152/82
[2022-01-18] MEDS: TRAZODONE 50 MG TABLET PO SCH (21:26)
[2022-01-18] MEDS: TIMOLOL MAL/DORZOLAM HCL OPHTH 10 ML BOTTLE EACHEYE SCH (21:29)
[2022-01-19] MEDS: IV D5/ 0.9% NACL 1,000 ML IV PRN ×2 (03:25→18:48)
[2022-01-19 06:17] LABS: BASOPHILS # (AUTO) 0.1 K/uL (0.0-0.2); BASOPHILS % (AUTO) 0.7 % (0.0-2.0); EOSINOPHILS % (AUTO) 8.8 % (0.0-6.0); HEMATOCRIT 35 % (33-45); HEMOGLOBIN 11.6 g/dL (11.5-14.8); LYMPHOCYTES # (AUTO) 1.9 K/uL (0.8-4.8); LYMPHOCYTES % (AUTO) 19.4 % (20.0-44.0); MEAN CORPUSCULAR HGB CONC 33 g/dl (31.0-36.0); MEAN CORPUSCULAR VOLUME 83 fL (82-100); MONOCYTES # (AUTO) 0.9 K/uL (0.1-1.30); MONOCYTES % (AUTO) 9.2 % (2.0-12.0); NEUTROPHILS # (AUTO) 6.2 K/uL (1.8-8.9); NEUTROPHILS % (AUTO) 61.9 % (43.0-81.0); PLATELET COUNT (AUTO) 276 K/uL (150-450); RED BLOOD CELL COUNT(AUTO) 4.23 MIL/uL (4.0-5.2)
--- NOTE | 2022-01-19 06:23 | NUR ---
MS RN CLOSING NOTES; PATIENT IN BED SLEEPING A/O X 1 CONFUSED,TOLERATING WELL ON ROOM AIR WITH NO SIGN SOB/RESPIRATORY DISTRESS.NO COMPLAINE OF PAIN/DISCOMFORT DURING SHIFT,DUE MEDS GIVEN ORDER.ALL NEEDS ATTENDED,PT WAS NPO SINCE MIDNIGHT DUE TO PROCEDURE ERCP. LFA # 20 G IV INFUSING NS @ 75 ML/HR,INTACT AND PATENT.SAFETY MEASURES IN PLACE: BED IN LOWEST LOCKED POSITION, SIDE RAILS UP X 2, CALL LIGHT WITHIN REACH. WILL ENDORSED TO NEXT SHIFT.
[2022-01-19 07:16] LABS: ALANINE AMINOTRANSFERASE 370 U/L (12-78); ALBUMIN 2.5 g/dL (3.4-5.0); ASPARTATE AMINOTRANSFERASE 290 U/L (15-37); CALCIUM, SERUM 9.6 mg/dL (8.5-10.1); CARBON DIOXIDE 28 mmol/L (21-32); CHLORIDE 101 mmol/L (98-107); CREATININE 0.5 mg/dL (0.6-1.3); GLUCOSE 137 mg/dL (74-106); LIPASE 344 U/L (73-393); SODIUM SERUM 137 mmol/L (136-145); TOTAL PROTEIN, SERUM 7.3 g/dL (6.4-8.2); UREA NITROGEN, BLOOD 4 mg/dL (7-18)
--- NOTE | 2022-01-19 07:25 | NUR ---
MS RN OPENING NOTE RECEIVED PT ASLEEP IN BED, EASILY AROUSED. A/O X2 WITH EPISODES OF CONFUSION. REORIENTED PT NEEDED. ON RA, TOLERATING WELL. NO SOB NOTED. NOT IN ANY SIGN OF RESPIRATORY DISTRESS. IV ACCESS IN RFA G#22 AND LFA G#20 INTACT AND PATENT. SAFETY MEASURES IN PLACE: BED IN LOWEST AND LOCKED POSITION, BED ALARM ON, SIDE RAILS UPX2, AND CALL LIGHT WITHIN REACH. WILL CONTINUE TO MONITOR PT.
[2022-01-19 07:45] LABS: ALKALINE PHOSPHATASE 1182 U/L (46-116)
[2022-01-19] MEDS: ENSURE CLEAR 237 ML LIQUID (MIX BERRY) PO SCH ×3 (08:00→17:26)
[2022-01-19] MEDS ORDERED: ANESTHESIA TRAY IN PYXIS 1 EA TRAY MC ONE (08:58)
[2022-01-19] MEDS: GABAPENTIN 300 MG CAPSULE PO SCH ×3 (09:00→17:25)
[2022-01-19] MEDS: risperiDONE 0.25 MG TABLET PO SCH ×2 (09:00→17:25)
[2022-01-19] MEDS: SENNOSIDES 8.6 MG TABLET PO SCH ×2 (09:00→17:25)
[2022-01-19] MEDS: ENOXAPARIN SODIUM 40 MG/0.4 ML DISP.SYRIN SQ SCH ×2 (09:00→21:00)
[2022-01-19] MEDS: PANTOPRAZOLE 40 MG TABLET.DR PO SCH (09:00)
[2022-01-19] MEDS: DOCUSATE SODIUM 100 MG CAPSULE PO SCH (09:00)
[2022-01-19] MEDS: AMLODIPINE BESYLATE 5 MG TABLET PO SCH (09:00)
--- NOTE | 2022-01-19 09:30 | NUR ---
RN NOTE LOVENOX SQ SCHEDULED AT 0900 NOT ADMINISTERED. PT WILL HAVE SURGERY TODAY.
[2022-01-19] MEDS: POTASSIUM CL. PREMIX PERIPHER. 50 ML IV SCH ×6 (10:27→16:36)
--- NOTE | 2022-01-19 12:11 | NUR ---
RN NOTE RECEIVED A CALL FROM OR NURSE, REX LOMBARDI DR. MOGHIMI RESCHEDULED THE ERCP PROCEDURE FROM 6PM TODAY TO 1 PM TOMORROW 01/20/22 AND TO RESUME THE CLEAR LIQUID DIET THEN NPO AGAIN AFTER MIDNIGHT.
[2022-01-19] MEDS: LATANOPROST EYE DROP 0.005% 2.5 ML BOTTLE EACHEYE SCH (17:34)
--- NOTE | 2022-01-19 19:24 | NUR ---
MS RN CLOSING NOTE PT AWAKE IN BED. A/O X2 WITH EPISODES OF CONFUSION. REORIENTED PT NEEDED. ON RA, TOLERATING WELL. NO SOB NOTED. NOT IN ANY SIGN OF RESPIRATORY DISTRESS. IV ACCESS IN RFA G#22 INTACT AND PATENT WITH D5 NS INFUSING AT 75ML/HR. ALL NEEDS ATTENDED. KEPT CLEAN AND COMFORTABLE. SAFETY MEASURES IN PLACE: BED IN LOWEST AND LOCKED POSITION, BED ALARM ON, SIDE RAILS UPX2, AND CALL LIGHT WITHIN REACH. ENDORSED TO LAMINATION INSPECTOR NURSE FOR ROGELIO.
--- NOTE | 2022-01-19 19:33 | NUR ---
MS RN OPENING NOTE PATIENT RECEIVED RESTING IN BED COMFORTABLY; A/OX2 WITH EPISODES OF CONFUSION. REORIENTED PT NEEDED. ON RA, TOLERATING WELL. NO SOB NOTED, BREATHING EVEN AND UNLABORED. NOT IN ANY SIGN OF RESPIRATORY DISTRESS. PATIENT DENIES PAIN; IV ACCESS IN RFA G#22 AND LFA G#20 INTACT AND PATENT. PER AM SHIFT, PATIENT SCHEDULED FOR SURGERY, NPO STATUS BY MIDNIGHT; SAFETY MEASURES IN PLACE: BED LOCKED IN LOW POSITION, BED ALARM ON, SIDE RAILS UPX2, CALL LIGHT WITHIN EASY REACH. WILL CONTINUE PLAN OF CARE
[2022-01-19 20:00] VITALS: BP 144/70
[2022-01-19] MEDS: TIMOLOL MAL/DORZOLAM HCL OPHTH 10 ML BOTTLE EACHEYE SCH (21:08)
[2022-01-19] MEDS: TRAZODONE 50 MG TABLET PO SCH (21:08)
[2022-01-20 05:39] LABS: BASOPHILS # (AUTO) 0.1 K/uL (0.0-0.2); BASOPHILS % (AUTO) 1.3 % (0.0-2.0); EOSINOPHILS % (AUTO) 7.3 % (0.0-6.0); HEMATOCRIT 34 % (33-45); HEMOGLOBIN 11.3 g/dL (11.5-14.8); LYMPHOCYTES # (AUTO) 1.8 K/uL (0.8-4.8); LYMPHOCYTES % (AUTO) 19.2 % (20.0-44.0); MEAN CORPUSCULAR HGB CONC 34 g/dl (31.0-36.0); MEAN CORPUSCULAR VOLUME 82 fL (82-100); MONOCYTES # (AUTO) 0.7 K/uL (0.1-1.30); NEUTROPHILS % (AUTO) 64.2 % (43.0-81.0); PLATELET COUNT (AUTO) 288 K/uL (150-450); RED BLOOD CELL COUNT(AUTO) 4.11 MIL/uL (4.0-5.2); WHITE BLOOD COUNT (AUTO) 9.3 K/uL (4.3-11.0)
[2022-01-20 06:13] LABS: ALANINE AMINOTRANSFERASE 346 U/L (12-78); ALBUMIN 2.3 g/dL (3.4-5.0); ASPARTATE AMINOTRANSFERASE 285 U/L (15-37); BILIRUBIN,TOTAL 16.6 mg/dL (0.2-1.0); CALCIUM, SERUM 9.7 mg/dL (8.5-10.1); CARBON DIOXIDE 27 mmol/L (21-32); CHLORIDE 101 mmol/L (98-107); CREATININE 0.5 mg/dL (0.6-1.3); GLUCOSE 106 mg/dL (74-106); LIPASE 286 U/L (73-393); POTASSIUM 3.3 mmol/L (3.5-5.1); SODIUM SERUM 135 mmol/L (136-145); TOTAL PROTEIN, SERUM 6.8 g/dL (6.4-8.2); UREA NITROGEN, BLOOD 4 mg/dL (7-18)
[2022-01-20 06:22] LABS: ALKALINE PHOSPHATASE > 1000 U/L (46-116)
--- NOTE | 2022-01-20 06:41 | NUR ---
MS RN CLOSING NOTE PATIENT RESTING IN BED COMFORTABLY; A/OX2 WITH EPISODES OF CONFUSION. REORIENTED PT NEEDED. ON RA, TOLERATING WELL. NO SOB NOTED, BREATHING EVEN AND UNLABORED. NOT IN ANY SIGN OF RESPIRATORY DISTRESS. PATIENT DENIES PAIN; IV ACCESS IN RFA G#22 AND LFA G#20 INTACT AND PATENT. PER AM SHIFT, PATIENT SCHEDULED FOR SURGERY, NPO STATUS MAINTAINED; ALL NEEDS RENDERED; SAFETY MEASURES IN PLACE: BED LOCKED IN LOW POSITION, BED ALARM ON, SIDE RAILS UPX2, CALL LIGHT WITHIN EASY REACH. WILL ENDORSE ROGELIO TO ONCOMING SHIFT
--- NOTE | 2022-01-20 07:25 | NUR ---
MS RN OPENING NOTE RECEIVED PT ASLEEP IN BED, EASILY AROUSED. A/O X2 WITH EPISODES OF CONFUSION. REORIENTED PT NEEDED. ON RA, TOLERATING WELL. NO SOB NOTED. NOT IN ANY SIGN OF RESPIRATORY DISTRESS. IV ACCESS IN RFA G#22 INTACT AND PATENT WITH D5 NS INFUSING AT 75ML/HR. SAFETY MEASURES IN PLACE: BED IN LOWEST AND LOCKED POSITION, BED ALARM ON, SIDE RAILS UPX2, AND CALL LIGHT WITHIN REACH. WILL CONTINUE TO MONITOR PT.
[2022-01-20 08:00] VITALS: BP 121/79
[2022-01-20] MEDS: ENSURE CLEAR 237 ML LIQUID (MIX BERRY) PO SCH ×3 (08:00→17:10)
[2022-01-20] MEDS: risperiDONE 0.25 MG TABLET PO SCH ×2 (09:00→17:10)
[2022-01-20] MEDS: AMLODIPINE BESYLATE 5 MG TABLET PO SCH (09:00)
[2022-01-20] MEDS: DOCUSATE SODIUM 100 MG CAPSULE PO SCH (09:00)
[2022-01-20] MEDS: PANTOPRAZOLE 40 MG TABLET.DR PO SCH (09:00)
[2022-01-20] MEDS: GABAPENTIN 300 MG CAPSULE PO SCH ×3 (09:00→17:10)
[2022-01-20] MEDS: SENNOSIDES 8.6 MG TABLET PO SCH ×2 (09:00→17:10)
[2022-01-20] MEDS: ENOXAPARIN SODIUM 40 MG/0.4 ML DISP.SYRIN SQ SCH ×2 (09:00→20:31)
--- NOTE | 2022-01-20 09:31 | NUR ---
RN NOTE LOVENOX SQ SCHEDULED AT 0900 NOT ADMINISTERED. PT WILL HAVE SURGERY TODAY.
[2022-01-20] MEDS: POTASSIUM CL. PREMIX PERIPHER. 50 ML IV SCH ×2 (10:15→11:00)
[2022-01-20] MEDS ORDERED: IOHEXOL 240MG/ML 50 ML IV ONE (10:26)
[2022-01-20] MEDS ORDERED: INDOMETHACIN 50 MG SUPP.RECT ONE (10:26)
[2022-01-20] MEDS ORDERED: SUCCINYLCHOLINE CHLORIDE 20 MG/ML VIAL ONE (11:25)
[2022-01-20] MEDS ORDERED: CLINDAMYCIN 900 MG/6 ML VIAL ONE (11:25)
[2022-01-20] MEDS ORDERED: FAMOTIDINE/PF INJ 20 MG/2 ML VIAL IV ONE (11:26)
--- NOTE | 2022-01-20 11:30 | NUR ---
RN NOTE PT LEFT THE UNIT, PICKED UP BY OR NURSES FOR AN ERCP PROCEDURE.
--- NOTE | 2022-01-20 11:55 | NUR ---
RN NOTE POTASSIUM CHLORIDE 10 MEQ IV NOT ADMINISTERED. PT NOT IN THE UNIT AND STILL AT OR FOR AN ERCP PROCEDURE.
[2022-01-20] MEDS ORDERED: ANESTHESIA TRAY IN PYXIS 1 EA TRAY MC ONE (13:41)
--- NOTE | 2022-01-20 13:50 | NUR ---
RN NOTE PT'S BACK FROM SURGERY WITH OR NURSEMIGNON FOR S/P ERCP. PT IS STABLE WITH NO EPISODES OF FEVER OR BREATHING PROBLEMS. DENIES PAIN IN THE ABDOMINAL AREA AT THIS TIME. VITAL SIGNS: BP 150/88, P 67, R 18, TEMP 97.6, SPO2 95%.
--- NOTE | 2022-01-20 14:50 | NUR ---
RN NOTE PT IS CURRENTLY SLEEPING, EASILY AROUSED. PT ON S/P ERCP PROCEDURE WITH NO EPISODES OF FEVER OR BREATHING PROBLEMS. DENIES PAIN IN THE ABDOMINAL AREA AT THIS TIME. VITAL SIGNS: BP 149/89, P 65, R 18, TEMP 97.9, SPO2 95%.
[2022-01-20] MEDS ORDERED: POTASSIUM CL. PREMIX PERIPHER. 50 ML IV SCH (15:30)
--- NOTE | 2022-01-20 15:50 | NUR ---
RN NOTE PT ON S/P ERCP PROCEDURE, REMAINS WITH NO EPISODES OF FEVER OR BREATHING PROBLEMS. DENIES PAIN IN THE ABDOMINAL AREA AT THIS TIME. VITAL SIGNS: BP 114/70, P 67, R 18, TEMP 97.5, SPO2 96%.
[2022-01-20 16:00] VITALS: BP 150/88
[2022-01-20] MEDS: LATANOPROST EYE DROP 0.005% 2.5 ML BOTTLE EACHEYE SCH (18:20)
--- NOTE | 2022-01-20 19:39 | NUR ---
MS RN CLOSING NOTE PT ASLEEP IN BED, EASILY AROUSED. A/O X1 WITH EPISODES OF CONFUSION. REORIENTED PT NEEDED. ON RA, TOLERATING WELL. NO SOB NOTED. NOT IN ANY SIGN OF RESPIRATORY DISTRESS. IV ACCESS IN RFA G#22 INTACT AND PATENT WITH D5 NS INFUSING AT 75ML/HR. ALL NEEDS ATTENDED. KEPT CLEAN AND COMFORTABLE. SAFETY MEASURES IN PLACE: BED IN LOWEST AND LOCKED POSITION, BED ALARM ON, SIDE RAILS UPX2, AND CALL LIGHT WITHIN REACH. ENDORSED TO DIRECTOR OF RESEARCH AND DEVELOPMENT NURSE FOR ROGELIO.
[2022-01-20 20:00] VITALS: BP 135/82
--- NOTE | 2022-01-20 20:08 | NUR ---
received in bed will stir and move when touched bed alarm on resp evevn and unlabored
[2022-01-20] MEDS: TRAZODONE 50 MG TABLET PO SCH (22:41)
[2022-01-20] MEDS: TIMOLOL MAL/DORZOLAM HCL OPHTH 10 ML BOTTLE EACHEYE SCH (22:41)
[2022-01-21] MEDS: IV D5/ 0.9% NACL 1,000 ML IV PRN (03:08)
--- NOTE | 2022-01-21 04:07 | NUR ---
closing notes: will open eyes when name called and shoulder touched she will only takes small sip of water aspiration precautions taken IN fluids continued good about being repositioned and cleaned
[2022-01-21 06:47] LABS: BASOPHILS # (AUTO) 0.1 K/uL (0.0-0.2); BASOPHILS % (AUTO) 1.1 % (0.0-2.0); EOSINOPHILS % (AUTO) 7.8 % (0.0-6.0); HEMATOCRIT 33 % (33-45); HEMOGLOBIN 11.2 g/dL (11.5-14.8); LYMPHOCYTES # (AUTO) 1.9 K/uL (0.8-4.8); LYMPHOCYTES % (AUTO) 22.8 % (20.0-44.0); MEAN CORPUSCULAR HGB CONC 34 g/dl (31.0-36.0); MEAN CORPUSCULAR VOLUME 83 fL (82-100); MONOCYTES # (AUTO) 0.7 K/uL (0.1-1.30); MONOCYTES % (AUTO) 8.3 % (2.0-12.0); NEUTROPHILS # (AUTO) 5.1 K/uL (1.8-8.9); PLATELET COUNT (AUTO) 263 K/uL (150-450); RED BLOOD CELL COUNT(AUTO) 4.03 MIL/uL (4.0-5.2); WHITE BLOOD COUNT (AUTO) 8.5 K/uL (4.3-11.0)
--- NOTE | 2022-01-21 07:20 | NUR ---
ms rn received on bed, awake,oriented x1,not in any form of distress, respirations even and unlabored,no sob noted, will monitor patient.
[2022-01-21 07:24] LABS: ALBUMIN 2.2 g/dL (3.4-5.0); BILIRUBIN,TOTAL 8.3 mg/dL (0.2-1.0); CALCIUM, SERUM 9.1 mg/dL (8.5-10.1); CREATININE 0.8 mg/dL (0.6-1.3); POTASSIUM 3.4 mmol/L (3.5-5.1); TOTAL PROTEIN, SERUM 6.9 g/dL (6.4-8.2)
[2022-01-21 08:00] VITALS: BP 146/86
[2022-01-21] MEDS: ENSURE CLEAR 237 ML LIQUID (MIX BERRY) PO SCH ×2 (08:00→12:00)
--- NOTE | 2022-01-21 09:00 | NUR ---
ms rn breakfast served,no appetite, due med given,tolerated well.
--- NOTE | 2022-01-21 09:20 | NUR ---
ms rn was seen by dr. cotter w/ order to be discharge to the facility today.
[2022-01-21] MEDS: risperiDONE 0.25 MG TABLET PO SCH (09:53)
[2022-01-21 09:54] VITALS: BP 146/86
[2022-01-21] MEDS: SENNOSIDES 8.6 MG TABLET PO SCH (09:54)
[2022-01-21] MEDS: DOCUSATE SODIUM 100 MG CAPSULE PO SCH (09:54)
[2022-01-21] MEDS: GABAPENTIN 300 MG CAPSULE PO SCH ×2 (09:54→12:23)
[2022-01-21] MEDS: PANTOPRAZOLE 40 MG TABLET.DR PO SCH (09:54)
[2022-01-21] MEDS: POTASSIUM CHLORIDE 20 MEQ TAB.PRT.SR PO SCH ×2 (09:54→12:23)
[2022-01-21] MEDS: AMLODIPINE BESYLATE 5 MG TABLET PO SCH (09:54)
[2022-01-21] MEDS: ENOXAPARIN SODIUM 40 MG/0.4 ML DISP.SYRIN SQ SCH (10:04)
--- NOTE | 2022-01-21 14:00 | NUR ---
ms chip covid results came and patient will be dc to [facility] per case operator.
--- NOTE | 2022-01-21 15:30 | NUR ---
ms rn report given to chip bustamante.
--- NOTE | 2022-01-21 16:15 | NUR ---
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
== END 2022-01-21 17:55 | DRG 441 ==
LOC: ER 03:29 → TELE 10:31 → MED 10:46
PROVIDERS: ADMIT Nurse Practitioner Acute Care; ATTEND Internal Medicine
PROC: 0F798DZ Dilation of Common Bile Duct with Intraluminal Device, Via Natural or Artificial Opening Endoscopic (ICD-10-PCS; principal; 2022-01-20)
PROC: 0FD98ZX Extraction of Common Bile Duct, Via Natural or Artificial Opening Endoscopic, Diagnostic (ICD-10-PCS; 2022-01-20)
DX: K72.00 Acute and subacute hepatic failure without coma (principal); G93.41 Metabolic encephalopathy; K85.90 Acute pancreatitis without necrosis or infection, unspecified; I81 Portal vein thrombosis; C25.0 Malignant neoplasm of head of pancreas; K80.51 Calculus of bile duct without cholangitis or cholecystitis with obstruction; R73.9 Hyperglycemia, unspecified; G30.9 Alzheimer's disease, unspecified; F02.80 Dementia in other diseases classified elsewhere, unspecified severity, without behavioral disturbance, psychotic disturbance, mood disturbance, and anxiety; I10 Essential (primary) hypertension; Z86.16 Personal history of COVID-19; M19.90 Unspecified osteoarthritis, unspecified site; F32.A Depression, unspecified; F29 Unspecified psychosis not due to a substance or known physiological condition; R42 Dizziness and giddiness; I49.9 Cardiac arrhythmia, unspecified; Z88.5 Allergy status to narcotic agent; Z88.0 Allergy status to penicillin; Z88.2 Allergy status to sulfonamides; F41.0 Panic disorder [episodic paroxysmal anxiety]; H40.9 Unspecified glaucoma; E87.6 Hypokalemia; K75.81 Nonalcoholic steatohepatitis (NASH); E80.6 Other disorders of bilirubin metabolism
CPT/HCPCS: 36415; 71045-TC; 71250-TC; 74018; 74183; 76705-TC; 80048-TC; 80053-TC; 80061-TC; 80076-TC; 82105; 82272-TC; 82378; 82607-TC; 82728-TC; 82784; 83540-TC; 83690-TC; 83735-TC; 84100-TC; 84155; 84165; 84443-TC; 85025-TC; 85610-TC; 85730-TC; 86301; 86334; 86850-TC; 87081-TC; 93307-TC; 97116-TC; 97530-TC; A9575; C2625; C9113; C9803; G0378; J0330; J0360; J1644; J1650; J2704; J3480; J3490; J7030; J7042; Q9966